=== PATIENT | male | born 1950 | race Caucasian/White ===

== ENCOUNTER → 2016-11-21 | Outpatient (CLI) | payer MEDICARE, OTHER ==
[~2016-11-21] MED LIST: ASPI-110 PO; CARV12.5 PO; CARV25TA PO; CEFT250T8 PO; CHOL50006 PO; CIAL5TAB PO; EVOL1.7I; FLUTI220I INH; HYDR-3516 PO; HYDR-3583 PO; MELA1TAB18 PO; MELAPOW2; OMEP20TA PO; OXYC-392 PO; OXYC1CAP PO; RAMI10CA PO; RAPA8CAP PO; TIZA2CAP3 PO; TRAZ50TA12 PO; ZETI10TA5 PO
[2016-11-21 09:12] LABS: AUTOMATED NEUTROPHIL # 3.9 TH/MM3 (1.8-7.7); BASOPHIL # 0.1 TH/MM3 (0-0.2); BASOPHIL % 1.6 % (0.0-2.0); EOSINOPHIL # 0.2 TH/MM3 (0-0.4); EOSINOPHIL % 2.6 % (0.0-4.0); HEMATOCRIT 46.4 % (39.0-51.0); HEMO FLAGS DIFF FINAL; LYMPH % 35.5 % (9.0-44.0); LYMPHOCYTE # 3.2 TH/MM3 (1.0-4.8); MEAN CELL VOLUME 90.6 FL (80.0-100.0); MEAN CORPUSCULAR HEMOGLOBIN 30.8 PG (27.0-34.0); MONO % 17.2 % (0.0-8.0); NEUT % 43.1 % (16.0-70.0); PLATELET COUNT 291 TH/MM3 (150-450); RED BLOOD COUNT 5.12 MIL/MM3 (4.50-5.90); RED CELL DISTRIBUTION WIDTH 14.7 % (11.6-17.2); WHITE BLOOD COUNT 9.1 TH/MM3 (4.0-11.0)
[2016-11-21 09:12] LABS: BLOOD, URINE NEG (NEG); GLUCOSE,URINE NEG (NEG); KETONE, URINE NEG (NEG); NITRITE,URINE NEG (NEG); PH, URINE 5.5 (5.0-8.5); URINE COLOR YELLOW (YELLW/STRAW)
[2016-11-21 09:16] LABS: COMMENT (UR) CULT NOT INDICATED; CULTURE IF INDICATED CULT NOT INDICATED
[2016-11-21 09:24] LABS: APTT (PATIENT) 28.2 SEC (24.3-30.1); INTERNATIONAL NORMALIZED RATIO 0.9 RATIO; PROTHROMBIN TIME - PATIENT 10.1 SEC (9.8-11.6)
[2016-11-21 09:37] LABS: ALKALINE PHOSPHATASE 77 U/L (45-117); ALT (GPT) 36 U/L (12-78); ANION GAP 6 MEQ/L (5-15); AST (GOT) 22 U/L (15-37); BICARBONATE 29.1 MEQ/L (21.0-32.0); BLOOD UREA NITROGEN 14 MG/DL (7-18); CHLORIDE 106 MEQ/L (98-107); GLOMERULAR FILTRATION RATE 65 ML/MIN (>89); GLUCOSE,FASTING 117 MG/DL (74-99); POTASSIUM 4.4 MEQ/L (3.5-5.1); SODIUM (NA) 141 MEQ/L (136-145); TOTAL BILIRUBIN ADULT 0.4 MG/DL (0.2-1.0)
--- NOTE | 2016-11-22 06:25 | EKG ---
Date Performed: 11/21/2016 Time Performed: 08:20:45 PTAGE: 66 years EKG: Sinus rhythm POSSIBLE RIGHT VENTRICULAR CONDUCTION DELAY NONSPECIFIC T-WAVE ABNORMALITY BORDERLINE ECG PREVIOUS TRACING : 04/13/2016 11.52 Compared to prior tracing no significant change DOCTOR: Marjorie Goncalves Interpretating Date/Time 11/22/2016 06:23:29
== END ==
LOC: CPRE 07:58
PROVIDERS: ATTEND Neurological Surgery
DX: Z01.812 Encounter for preprocedural laboratory examination (principal); Z01.810 Encounter for preprocedural cardiovascular examination; M51.26 Other intervertebral disc displacement, lumbar region; R94.31 Abnormal electrocardiogram [ECG] [EKG]
CPT/HCPCS: 36415; 80053; 81001; 85025; 85610; 85730; 93005

== ENCOUNTER 2016-11-29 09:11 | Observation (INO) | payer MEDICARE, OTHER ==
[~2016-11-29] VITALS: Ht 167.6 cm; Wt 117.4 kg
[~2016-11-29 09:11] MED LIST changes: +BUPIVACAINE/EPINEPHRINE 0.5% 50 ML VIAL ONE; -CARV12.5 PO; -CEFT250T8 PO; -CHOL50006 PO; -EVOL1.7I; -FLUTI220I INH; +GELFOAM SIZE 100 ONE; +GENTAMICIN SULFATE 80 MG/2 ML VIAL ONE; -HYDR-3516 PO; -HYDR-3583 PO; -MELAPOW2; +THROMBIN (TOPICAL) 5,000 UNIT VIAL ONE; -TIZA2CAP3 PO; +ceFAZolin 2 GM PREMIX 50 ML ONE; +methylPREDNISolone ACETATE 40 MG/ML VIAL ONE
[2016-11-29] MEDS ORDERED: POVIDONE IODINE 5% (ANTISEPSIS KIT) 4 APPLICATIONS EACH NARE PRN (09:45)
[2016-11-29] MEDS ORDERED: CHLORHEXIDINE GLUCONATE 2 % 1 PACK (2 CLOTHS) TOPICAL PRN (09:45)
[2016-11-29] MEDS ORDERED: INSULIN HUMAN REGULAR 1,000 UNITS/10 ML VIAL SQ PRN (09:45)
[2016-11-29] MEDS ORDERED: METOPROLOL TARTRATE 25 MG TAB PO PRN (09:45)
[2016-11-29] MEDS ORDERED: LACTATED RINGER'S 1000 ML IV PRN (09:45)
[2016-11-29] MEDS ORDERED: SODIUM CHLORID 0.9% 500 ML IV PRN (09:45)
[2016-11-29] MEDS ORDERED: VANCOMYCIN HCL 1000 MG ON-CALL/NS 250 ML IV SCH ×2 (10:00)
[2016-11-29] MEDS: SODIUM CHLOR 0.9% 1000 ML INJ 1,000 ML IV SCH (10:00)
[2016-11-29 10:07] VITALS: BP 160/87; PULSE 64; RESP 20; TEMP 99.4; O2SAT 95
[2016-11-29] MEDS ORDERED: LACTATED RINGER'S 1000 ML INJ 1,000 ML IV ONE (12:00)
[2016-11-29] MEDS ORDERED: PROPOFOL 200 MG/20 ML AMP IV ONE (12:00)
[2016-11-29] MEDS ORDERED: NEOSTIGMINE 3 MG/3 ML SYR IV ONE (12:00)
[2016-11-29] MEDS ORDERED: FAMOTIDINE 20 MG/2 ML VIAL ONE (12:57)
[2016-11-29] MEDS ORDERED: MIDAZOLAM HCL 2 MG/2 ML VIAL ONE ×2 (12:57→13:15)
[2016-11-29] MEDS ORDERED: DEXAMETHASONE SOD PHOS 4 MG/ML VIAL ONE (12:57)
[2016-11-29] MEDS ORDERED: fentaNYL CITRATE 250 MCG/5 ML AMP ONE (13:15)
[2016-11-29] MEDS ORDERED: ACETAMINOPHEN 1000 MG/100 ML VIAL IV ONE (13:15)
[2016-11-29] MEDS ORDERED: ARTIFICIAL TEARS OPTH OINT 3.5 APPLIC/3.5 GM TUBO ONE (13:15)
[2016-11-29] MEDS ORDERED: ACETAMINOPHEN 325 MG TAB PO PRN (16:00)
[2016-11-29] MEDS ORDERED: SODIUM CHLORIDE 0.9% FLUSH 5 ML FLUSH IVF PRN (16:00)
[2016-11-29] MEDS ORDERED: ACETAMINOPHEN/HYDROcodone 325 MG/10 MG TAB PO PRN (16:00)
[2016-11-29] MEDS ORDERED: MORPHINE SULFATE 4 MG/ML INJ IV PUSH PRN ×2 (16:00)
[2016-11-29] MEDS ORDERED: traZODone HCL 50 MG TAB PO PRN (16:00)
[2016-11-29] MEDS ORDERED: MELATONIN 20 MG PO PRN (16:00)
--- NOTE | 2016-11-29 16:06 | PD.OP ---
Operative Report Date of Surgery: November 29, 2016 Preoperative Diagnosis: Lumbar spinal stenosis Postoperative Diagnosis: Lumbar spinal stenosis Procedure: L4-5 and L5-S1 right decompressive laminectomy, mesial facetectomy, foraminotomy with microsurgical resection of the disc Surgeon: Tucker Hoover Floor Polisher(s): eKiko Fairchild Operation and Findings: INDICATIONS FOR THE SURGICAL PROCEDURE Mr Bravo is a 66 year-old male who presented with intractable mechanical back pain and clinical evidence of right L4 and L5 lower extremity radiculopathy. He was found to have significant lumbar spinal stenosis with significant mass effect on the neural structures which correlated with the clinical symptoms. The patient has failed maximum nonsurgical management including multiple modalities of conservative treatment as well as pain management interventions by an interventional pain specialist. A surgical decompression was indicated as a last resort. The [id number] details of the procedure, indications, alternatives, risks and potential complications were fully discussed with the patient. The patient fully understood. All the questions were answered. No guarantees were given. The patient voiced requesting the procedure and provided informed consents. The patient was offered the alternative of delaying the procedure and continuing with nonsurgical management. DETAILS OF THE SURGICAL PROCEDURE After the induction of general anesthesia, endotracheal intubation was performed. A Orozco catheter, bilateral BOBBY hose and sequential compression devices were placed and kept throughout the procedure. The patient was positioned prone on a Jerad table over a Jayce frame. All pressure points were carefully padded with eggcrate mattress. The eyes were tapped shut after ointment was applied by the anesthesiologist to prevent corneal abrasion. A Ras hugger was placed over the exposed lower body to maintain control of the core body temperature. The lower lumbar region was prepped and draped in the usual sterile fashion. A spinal needle was placed for localization and an x- ray performed with a C-arm. A skin incision was made in the midline over the spinous processes L4-5 and L5- S1 with a #10 blade. Small subcutaneous bleeders were controlled with a bipolar and the dissection was carried out through the lumbar fascia exposing the spinous processes. A subperiostial dissection was performed with a Pinedo elevator and a Bovie on the right side over the L4-5 and L5-S1 spinous process lamina and facets. A microdiscectomy self-retaining retractor was placed on the incision and an x-ray was obtained with an instrument placed underneath the lamina. At this point in the procedure the operating microscope was draped in the usual sterile fashion and brought to the field. The rest of the surgical procedure was performed using microsurgical dissection technique with exception of the closure. Once the level was confirmed, a right decompressive laminectomy was performed at initially at L4-5 and thereafter at L5-S1 using the TPS drill with an 4mm drill bit. A medial facetectomy was performed and the superior free border of the ligamentum flavum was dissected with a ligament dissector and removed with a thin footplate 2 mm Kerrison. The medial facetectomy was done and the L5 and S5malxv roots were identified and followed towards its exit in the foramen. Epidural veins located laterally to the dural sac were coagulated with a bipolar and incised with microscissors. Gentle medial retraction of the dural sac allowed inspection of the disc space. The patient had severe facet arthropathy with hypertrhopy of the joint facets and ligamentum flavum resulting in mass effect over the dural sac and nerve roots. In addition, there was a broad-based disc protusion, contributing to the stenosis. The annulus fibrosus of the disc was coagulated with the bipolar and incised with an 11 blade. The disc protusion was carefully dissected from the surrounding tissue and removed with pituitary forceps. Then, a microdiscectomy was carried out in the standard fashion using straight and up-biting pituitary forceps. A good decompression of the dural sac and nerve root was achieved. The exit of the nerve root L5 and S1 was inspected for residual disc fragments and hemostasis was secured with the bipolar. The incision was irrigated with a large amount of saline solution. A Valsalva maneuver failed to show any cerebrospinal fluid leak or bleeding. The decompression was assessed again and found to be satisfactory. The incision was then closed in layers. The fascia was closed with 0 Vicryl sutures in an interrupted fashion. The superficial fascia was closed with 0 Vicryl sutures. The fascia was infiltrated with 0.5% Marcaine with epinephrine 1:100,000 dilution. The subcutaneous tissue was irrigated then closed with 0 Vicryl and 3 -0 Vicryl. The skin was closed with 4-0 running subcuticular Vicryl. A sterile dressing was applied. At the end of the procedure, the sponge, needle and instrument counts were all correct. Estimated blood loss was less than 50 cc. No blood transfusion was given. No intraoperative complications occurred. The patient received prophylactic antibiotics. The patient was then extubated and transferred to the recovery room in stable condition. Tucker Hoover MD November 29, 2016 16:05
[2016-11-29] MEDS ORDERED: HYDR-3583 PO (16:14)
--- NOTE | 2016-11-29 16:16 | RADRPT ---
EXAM DATE/TIME: 11/29/2016 13:56 [facility] COMPARISON: No previous studies available for comparison. INDICATIONS : Level localization for lumbar laminectomy. MEDICAL HISTORY : Cardiovascular disease. Hypertension. Lymphoma.Barretts Esophagus. SURGICAL HISTORY : Fusion, cervical. ENCOUNTER: Initial ACUITY: 1 day PAIN SCORE: Non-responsive. LOCATION: Lumbar. FINDINGS: Intraoperative localization points towards L5. CONCLUSION: Intraoperative localization. Jorge Davis MD on November 29, 2016 at 16:13 Board Certified Radiologist. This report was verified electronically.
[2016-11-29] MEDS: NS + KCL 20 MEQ INJ 1,000 ML IV SCH ×2 (17:32→20:19)
[2016-11-29 18:30] VITALS: BP 156/96; PULSE 60; RESP 17; TEMP 96.2; O2SAT 95
[2016-11-29 20:00] VITALS: BP 156/89; PULSE 55; RESP 17; TEMP 97.2; O2SAT 97
[2016-11-29] MEDS: ceFAZolin 2 GM PREMIX 50 ML IV SCH (20:19)
[2016-11-29] MEDS: DOCUSATE SODIUM 100 MG CAP PO SCH (20:19)
[2016-11-29] MEDS: SODIUM CHLORIDE 0.9% FLUSH 5 ML FLUSH IVF SCH (20:20)
[2016-11-29] MEDS ORDERED: CARVEDILOL 12.5 MG TAB PO SCH (21:00)
[2016-11-29] MEDS: ACETAMINOPHEN/HYDROcodone 325 MG/10 MG TAB PO PRN (22:05)
[2016-11-30] VITALS: BP 162/90; PULSE 69; RESP 17; TEMP 96.9; O2SAT 97
[2016-11-30 04:00] VITALS: BP 153/83; PULSE 58; RESP 17; TEMP 97.7; O2SAT 97
[2016-11-30] MEDS: ACETAMINOPHEN/HYDROcodone 325 MG/10 MG TAB PO PRN ×2 (04:09→10:10)
[2016-11-30] MEDS: ceFAZolin 2 GM PREMIX 50 ML IV SCH (04:10)
[2016-11-30 07:06] VITALS: BP 113/69; PULSE 69; RESP 18; TEMP 97.6; O2SAT 96
[2016-11-30] MEDS ORDERED: PANTOPRAZOLE SOD 20 MG DELAYED RELEASE TAB PO SCH (09:00)
[2016-11-30] MEDS ORDERED: RAMIPRIL 5 MG CAP PO SCH (09:00)
[2016-11-30] MEDS: SODIUM CHLORIDE 0.9% FLUSH 5 ML FLUSH IVF SCH (09:00)
[2016-11-30] MEDS ORDERED: PANTOPRAZOLE SOD 40 MG DELAYED RELEASE TAB PO SCH (09:00)
[2016-11-30] MEDS ORDERED: SILODOSIN 8 MG PO SCH (09:00)
[2016-11-30] MEDS ORDERED: EZETIMIBE 10 MG TAB PO SCH (09:00)
[2016-11-30] MEDS ORDERED: TADALAFIL 5 MG PO SCH (09:00)
--- NOTE | 2016-11-30 09:39 | HHI.DCPOC ---
Discharge Care Plan Diagnosis: (1) S/P lumbar laminectomy Goals to Promote Your Health * To prevent worsening of your condition and complications * To maintain your health at the optimal level Directions to Meet Your Goals Take your medications as prescribed Follow your dietary instruction Follow activity as directed Keep your appointments as scheduled Take your immunizations and boosters as scheduled If your symptoms worsen call your PCP, if no PCP go to Urgent Care Center or Emergency Room Smoking is Dangerous to Your Health. Avoid second hand smoke Call the 24-hour hour crisis hotline for domestic abuse at Chayo Luis November 30, 2016 09:39
--- NOTE | 2016-11-30 09:41 | HHI.DS ---
Discharge Summary Admission Date November 29, 2016 at 18:15 Discharge Date: November 30, 2016 Admitting Diagnosis s/p lumbar laminectomy (1) S/P lumbar laminectomy ICD Code: Z98.890 Brief History Mr Bravo is a 66 year-old male who presented with intractable mechanical back pain and clinical evidence of right L4 and L5 lower extremity radiculopathy. He was found to have significant lumbar spinal stenosis with significant mass effect on the neural structures which correlated with the clinical symptoms. The patient has failed maximum nonsurgical management including multiple modalities of conservative treatment as well as pain management interventions by an interventional pain specialist. A surgical decompression was indicated as a last resort. Imaging Last Impressions Lumbar Spine X-Ray 11/29/16 0000 Signed Impressions: Service Date/Time: Tuesday, November 29, 2016 13:56 - CONCLUSION: Intraoperative localization. Jorge Davis MD PE at Discharge Alert, conversing well. Moves all four extremities well. Respiratory: nonlabored CN: pupils equal, facial motor symmetric. Hospital Course Mr. Bravo underwent a L4-5 and L5-S1 right decompressive laminectomy, mesial facetectomy, foraminotomy with microsurgical resection of the disc on November 29, 2016. His surgery went well without complications. He was discharged home in stable conditions. Wound care and activity restrictions were discussed. Pt Condition on Discharge: Stable Discharge Disposition: Discharge Home Discharge Instructions DIET: Follow Instructions for: Heart Healthy Diet ACTIVITIES You can perform: Weight Bearing As Josie ADDITIONAL Activity Instructio: Avoid strenuous activities, heavy lifting, overhead activities, repetitive bending, twisting, pushing, pulling or any activities which might result in stress over the spine. Avoid situtation that will put at risk for falls. Use assistive device as needed for walking. Wear cervical collar at all times, may remove only with meals. New Medications: Hydrocodone-Acetaminophen (Hydrocodone-Acetaminophen) 10-325 mg Tab 1 TAB PO Q8HR PRN PAIN SCALE 1 TO 5 #90 Ref 0 TAB Continued Medications: Aspirin DR (Aspirin 81) 81 Mg Tabdr 81 MG PO DAILY Ref 0 TAB Carvedilol (Carvedilol) 25 Mg Tab 25 MG PO BID #60 Ref 0 TAB Ezetimibe (Zetia) 10 Mg Tab 10 MG PO DAILY #30 Ref 0 TAB Melatonin (Melatonin) 10 Mg Tab 20 MG PO HS PRN SLEEP Ref 0 TAB Omeprazole (Omeprazole) 20 Mg Tab 20 MG PO DAILY #30 Ref 0 TAB Oxycodone (Oxycodone) 5 Mg Cap 5 MG PO Q4H PRN PAIN Ref 0 CAP Ramipril (Ramipril) 10 Mg Cap 10 MG PO DAILY #30 Ref 0 CAP Silodosin (Rapaflo) 8 Mg Cap 8 MG PO DAILY Manage Prostate Problems #30 Ref 0 CAP Tadalafil (Cialis) 5 Mg Tab 5 MG PO DAILY Do not exceed 1 dose/day. Ref 0 TAB Trazodone (Trazodone) 50 Mg Tab 50 MG PO HS PRN INSOMNIA #30 Ref 0 TAB Chayo Luis November 30, 2016 09:41
[2016-11-30] MEDS: SODIUM CHLOR 0.9% 1000 ML INJ 1,000 ML IV SCH (10:00)
[2016-11-30] MEDS: DOCUSATE SODIUM 100 MG CAP PO SCH (10:09)
[2016-11-30] MEDS: NS + KCL 20 MEQ INJ 1,000 ML IV SCH (11:55)
[2016-11-30 12:00] VITALS: BP 145/76; PULSE 71; RESP 18; TEMP 96; O2SAT 95
== END 2016-11-30 13:30 | disposition home or self-care (01) ==
LOC: HSDC 09:11 → N06B 18:15
PROVIDERS: ADMIT Neurological Surgery; ATTEND Neurological Surgery
DX: M51.16 Intervertebral disc disorders with radiculopathy, lumbar region (principal); M48.06 Spinal stenosis, lumbar region; I10 Essential (primary) hypertension; Z85.72 Personal history of non-Hodgkin lymphomas; I25.10 Atherosclerotic heart disease of native coronary artery without angina pectoris; I25.2 Old myocardial infarction; E78.5 Hyperlipidemia, unspecified; G62.9 Polyneuropathy, unspecified; Z87.891 Personal history of nicotine dependence; K21.9 Gastro-esophageal reflux disease without esophagitis; Z85.46 Personal history of malignant neoplasm of prostate; Z98.1 Arthrodesis status; Z88.8 Allergy status to other drugs, medicaments and biological substances; Z88.5 Allergy status to narcotic agent
CPT/HCPCS: 63030; 63035; 72020; 76000; 94150; G0378; J0131; J0690; J1030; J1100; J1580; J2250; J2270; J2710; J3010; J3370; J3480; J7050; J7120; L0627

== ENCOUNTER 2016-12-02 06:20 | Emergency (ER) | payer MEDICARE, OTHER ==
[~2016-12-02 06:20] MED LIST changes: -BUPIVACAINE/EPINEPHRINE 0.5% 50 ML VIAL ONE; -GELFOAM SIZE 100 ONE; -GENTAMICIN SULFATE 80 MG/2 ML VIAL ONE; +HYDR-3583 PO; -OXYC-392 PO; -THROMBIN (TOPICAL) 5,000 UNIT VIAL ONE; -ceFAZolin 2 GM PREMIX 50 ML ONE; -methylPREDNISolone ACETATE 40 MG/ML VIAL ONE
[2016-12-02 06:24] VITALS: BP 126/70; PULSE 72; RESP 16; TEMP 99.3; O2SAT 99
== END 2016-12-02 06:32 | disposition left against medical advice (07) ==
LOC: NED 06:20
DX: R50.9 Fever, unspecified (principal)
CPT/HCPCS: 99281

== ENCOUNTER 2016-12-03 10:34 | Inpatient (IN) | payer MEDICARE, OTHER ==
[~2016-12-03] VITALS: Ht 167.6 cm; Wt 81.0 kg
[2016-12-03 10:36] VITALS: BP 153/95; PULSE 82; RESP 20; TEMP 101.4; O2SAT 97
[2016-12-03 11:06] VITALS: BP 178/93; PULSE 84; RESP 18; TEMP 102.4; O2SAT 99
--- NOTE | 2016-12-03 11:12 | PD ---
HPI Chief Complaint: Fever Time Seen by Provider: 10:56 Travel History International Travel<30 days: No Contact w/Intl Traveler<30days: No Traveled to known affect area: No History of Present Illness HPI 66yo M with PMH of pheochromocytoma, adrenal gland CA s/p left nephrectomy and splenectomy, prostate CA currently being monitored, BPH presents to the ED with c/o fever and urinary retention. Pt had L5-S1 right decompressive laminectomy, medial facetectomy, foraminotomy with micro surgical resection of disc by Dr. Hoover on 11/29/16 and has been having intermittent fever and difficulty urinating. States that he feels fullness in his bladder and tries to push out the urine and usually gets a little dribble. Denies any trauma, chest pain, sob , n/v, focal weakness or numbness. PFSH Past Medical History Cancer: Yes (prostate ) Cardiovascular Problems: Yes (HTN) Diabetes: No Endocrine: No Gastrointestinal Disorders: Yes (gerd, toth's esophagus) Genitourinary: Yes (one kidney) Hepatitis: No Hiatal Hernia: No Hypertension: Yes Immune Disorder: No Musculoskeletal: Yes (back pain) Neurologic: Yes (pain shoulders with numbness both arms, tingling r leg ) Psychiatric: Yes (DEPRESSION) Reproductive: No Respiratory: Yes (SLEEP APNEA) Thyroid Disease: No Tetanus Vaccination: < 5 Years Influenza Vaccination: Yes Past Surgical History Abdominal Surgery: Yes (hernia repair, gallbladder, spleen removal,16 lymph node removed) AICD: No Body Medical Devices: KRISTEN IN DIAPHRAM, PLATES AND SCREWS IN NECK Ear Surgery: No Endocrine Surgery: Yes (REMOVAL OF L ADRENAL GLAND, SPLEEN,LYMPH NODES ) Eye Surgery: No Genitourinary Surgery: Yes (LEFT NEPHRECTOMY) Joint Replacement: No Neurologic Surgery: Yes (R WRIST CARPAL TUNNEL 2009, CERVICAL FUSION ) Oral Surgery: No Pacemaker: No Other Surgery: Yes Social History Alcohol Use: No Tobacco Use: No Substance Use: No Allergies-Medications (Allergen,Severity, Reaction): Coded Allergies: Zocor (Verified Allergy, Severe, 12/03/16) HMG-CoA Reductase Inhibitors (Verified Adverse Reaction, Severe, RABDOMYOLYSIS, RENAL FAILURE, 12/03/16) Levaquin (Verified Adverse Reaction, Intermediate, NAUSEA/VOMITING, ) Vicodin (Verified Adverse Reaction, Intermediate, ITCHING, 12/03/16) Reported Meds & Prescriptions Reported Meds & Active Scripts Active Reported Carvedilol 25 Mg Tab 25 Mg PO BID Ramipril 10 Mg Cap 10 Mg PO DAILY Aspirin 81 (Aspirin) 81 Mg Tabdr 81 Mg PO DAILY Cialis (Tadalafil) 5 Mg Tab 5 Mg PO DAILY Do not exceed 1 dose/day. Omeprazole 20 Mg Tab 20 Mg PO DAILY Rapaflo (Silodosin) 8 Mg Cap 8 Mg PO DAILY Trazodone (Trazodone HCl) 50 Mg Tab 50 Mg PO HS PRN Zetia (Ezetimibe) 10 Mg Tab 10 Mg PO DAILY Review of Systems Except as stated in HPI: all other systems reviewed are Neg Physical Exam Narrative GENERAL: 66yo M not in distress. SKIN: Focused skin assessment warm/dry. HEAD: Atraumatic. Normocephalic. CARDIOVASCULAR: Regular rate and rhythm. No murmur appreciated. RESPIRATORY: No accessory muscle use. Clear to auscultation. Breath sounds equal bilaterally. GASTROINTESTINAL: Abdomen soft, non-tender, nondistended. No rebound tenderness or guarding. BACK: +Scar L5-S1. No edema, erythema, or hematoma. No discharge or signs of infection. MUSCULOSKELETAL: No obvious deformities. No clubbing. No cyanosis. No edema. NEUROLOGICAL: Awake and alert. No obvious cranial nerve deficits. Motor grossly within normal limits. Normal speech. Sensation intact bilateral lower ext. PSYCHIATRIC: Appropriate mood and affect; insight and judgment normal. Data Data Last Documented VS Vital Signs Date Time Temp Pulse Resp B/P Pulse Ox O2 Delivery O2 Flow Rate FiO2 12/03/16 11:06 102.4 84 18 178/93 99 Room Air Orders Blood Culture (12/03/16 11:06) Complete Blood Count With Diff (12/03/16 11:06) Basic Metabolic Panel (Bmp) (12/03/16 11:06) Lactic Acid Sepsis Protocol (12/03/16 11:06) Prothrombin Time / Inr (Pt) (12/03/16 11:06) Act Partial Throm Time (Ptt) (12/03/16 11:06) Urinalysis - C+S If Indicated (12/03/16 11:06) Urinary Catheter Insert/Apply (12/03/16 11:06) Acetaminophen (Tylenol) (12/03/16 11:30) Sodium Chlor 0.9% 1000 Ml Inj (Ns 1000 M (12/03/16 11:45) Ceftriaxone Inj (Rocephin Inj) (12/03/16 11:45) Urine Culture (12/03/16 10:58) Diet Heart Healthy (12/03/16 Lunch) Vital Signs (Adult) DARYL.Q4H (12/03/16 12:31) Ondansetron Inj (Zofran Inj) (12/03/16 13:00) Acetaminophen (Tylenol) (12/03/16 13:00) Complete Blood Count With Diff (12/04/16 06:00) Admit Order (Ed Use Only) (12/03/16 12:35) Labs Laboratory Tests Test 12/03/16 12/03/16 12/03/16 10:58 11:10 11:15 Urine Color YELLOW Urine Turbidity HAZY Urine pH 6.0 Urine Specific [place] 1.020 Urine Protein 30 mg/dL Urine Glucose (UA) NEG mg/dL Urine Ketones 10 mg/dL Urine Occult Blood SMALL Urine Nitrite POS Urine Bilirubin NEG Urine Urobilinogen LESS THAN 2.0 MG/DL Urine Leukocyte Esterase LARGE Urine RBC 47 /hpf Urine WBC /hpf Urine Amorphous Sediment OCC Urine Bacteria MANY /hpf Urine Mucus FEW /lpf Microscopic Urinalysis Comment CULTURE INDICATED White Blood Count 13.6 TH/MM3 Red Blood Count 5.17 MIL/MM3 Hemoglobin 15.4 GM/DL Hematocrit 47.0 % Mean Corpuscular Volume 90.9 FL Mean Corpuscular Hemoglobin 29.9 PG Mean Corpuscular Hemoglobin 32.9 % Concent Red Cell Distribution Width 14.6 % Platelet Count 213 TH/MM3 Mean Platelet Volume 10.0 FL Neutrophils (%) (Auto) 80.6 % Lymphocytes (%) (Auto) 6.1 % Monocytes (%) (Auto) 12.7 % Eosinophils (%) (Auto) 0.1 % Basophils (%) (Auto) 0.5 % Neutrophils # (Auto) 11.0 TH/MM3 Lymphocytes # (Auto) 0.8 TH/MM3 Monocytes # (Auto) 1.7 TH/MM3 Eosinophils # (Auto) 0.0 TH/MM3 Basophils # (Auto) 0.1 TH/MM3 CBC Comment DIFF FINAL Differential Comment Prothrombin Time 11.4 SEC Prothromb Time International 1.0 RATIO Ratio Activated Partial 28.8 SEC Thromboplast Time Sodium Level 137 MEQ/L Potassium Level 4.3 MEQ/L Chloride Level 102 MEQ/L Carbon Dioxide Level 26.2 MEQ/L Anion Gap 9 MEQ/L Blood Urea Nitrogen 20 MG/DL Creatinine 1.18 MG/DL Estimat Glomerular Filtration 62 ML/MIN Rate Random Glucose 100 MG/DL Calcium Level 9.4 MG/DL Lactic Acid Level 1.2 mmol/L MDM Medical Decision Making Medical Screen Exam Complete: Yes Emergency Medical Condition: Yes Differential Diagnosis UTI vs. urinary retention vs. acute kidney injury vs. epidural abscess vs. epidural hematoma Narrative Course 66yo M with recent laminectomy here with c/o fever and urinary retention since the surgery 11/29/16. Orozco catheter placed and 600cc of cloudy urine came out immediately. Labs reviewed, leukocytosis at 13.6. BUN mildly elevated. Creatinine normal at 1.18. Lactic acid 1.2. UA showed positive nitrite and leukocyte. Pt given ceftriaxone 1gm IV and leukocyte. Pt febrile here so give acetaminophen since last time he took it was 8 hours ago. I discussed case with Dr. Saldana and he thinks fever and urinary retention is likely from UTI. Thinks that if we obtain MRI, will likely show inflammation and small epidural hematoma which is expected. Recommend to treat UTI and if symptoms dont improve in 24-48 hours, then can consider MRI. I agree with plan since clinically pt has no signs of infection in his lower back and back pain has improved. Pt has no weakness or numbness in his lower extremities. Discussed with Dr. Carlisle and accepted to his service for sepsis secondary to UTI. Critical Care Narrative Aggregate critical care time was 40 minutes. Time to perform other separately billable procedures was not included in the critical care time. My time did not include minutes spent treating any other patients simultaneously or on activities that did not directly contribute to the patient's treatment. The services I provided to this patient were to treat and/or prevent clinically significant deterioration that could result in: cardiovascular collapse or . I provided critical care services requiring my management, as noted below: Chart data review, documentation time, medication orders and management, vital sign assessments/reviewing monitor data, ordering and reviewing lab tests, ordering and interpreting/reviewing x-rays and diagnostic studies, care of the patient and discussion of the patient with the admitting physicians. Sepsis Criteria SIRS Criteria (2 or more): Temp > 100.9 or < 96.8, WBC > 52755, < 4000 or > 10 % bands Sepsis Criteria (SIRS+source): Infect source susp/known Diagnosis Primary Impression: Sepsis Qualified Code: A41.9 - Sepsis, due to unspecified organism Admitting Information Admitting Physician Requests: Yaritza Jacobson DO December 03, 2016 11:12
[2016-12-03] MEDS ORDERED: ACETAMINOPHEN 325 MG TAB PO ONE (11:30)
[2016-12-03 11:35] LABS: BASOPHIL # 0.1 TH/MM3 (0-0.2); BASOPHIL % 0.5 % (0.0-2.0); EOSINOPHIL % 0.1 % (0.0-4.0); HEMO FLAGS DIFF FINAL; LYMPH % 6.1 % (9.0-44.0); LYMPHOCYTE # 0.8 TH/MM3 (1.0-4.8); MEAN CELL VOLUME 90.9 FL (80.0-100.0); MEAN CORPUSCULAR HEMOGLOBIN 29.9 PG (27.0-34.0); MEAN CORPUSCULAR HGB CONC 32.9 % (32.0-36.0); MONO % 12.7 % (0.0-8.0); NEUT % 80.6 % (16.0-70.0); PLATELET COUNT 213 TH/MM3 (150-450); RED BLOOD COUNT 5.17 MIL/MM3 (4.50-5.90); RED CELL DISTRIBUTION WIDTH 14.6 % (11.6-17.2); WHITE BLOOD COUNT 13.6 TH/MM3 (4.0-11.0)
[2016-12-03 11:44] LABS: BICARBONATE 26.2 MEQ/L (21.0-32.0); POTASSIUM 4.3 MEQ/L (3.5-5.1)
[2016-12-03 11:45] LABS: APTT (PATIENT) 28.8 SEC (24.3-30.1); PROTHROMBIN TIME - PATIENT 11.4 SEC (9.8-11.6)
[2016-12-03] MEDS ORDERED: cefTRIAXone INJ 1,000 MG in SODIUM CHLORIDE 0.9% INJ 100 ML IV ONE (11:45)
[2016-12-03] MEDS ORDERED: SODIUM CHLOR 0.9% 1000 ML INJ 1,000 ML IV ONE ×2 (11:45→13:00)
[2016-12-03 11:46] LABS: BACTERIA, URINE MANY /hpf; BLOOD, URINE SMALL (NEG); GLUCOSE,URINE NEG (NEG); KETONE, URINE 10 mg/dL (NEG); MUCUS URINE FEW /lpf (OCC); URINE COLOR YELLOW (YELLW/STRAW)
[2016-12-03 11:47] LABS: COMMENT (UR) CULTURE INDICATED; CULTURE IF INDICATED CULTURE INDICATED; NITRITE,URINE POS (NEG)
[2016-12-03] MEDS ORDERED: ONDANSETRON HCL 4 MG/2 ML VIAL IV PUSH PRN (13:00)
--- NOTE | 2016-12-03 13:07 | HHI.HP ---
[facility] Primary Care Physician Non-Staff Admission Diagnosis Urosepsis Diagnoses: (1) Sepsis Diagnosis: Principal (2) UTI (urinary tract infection) Diagnosis: Principal (3) Urinary retention Diagnosis: Principal Chief Complaint: urinary retention Travel History International Travel<30 Days: No Contact w/Intl Traveler <30 Da: No Traveled to Known Affected Are: No Sepsis Criteria SIRS Criteria (2 or more): Temp > 100.9 or < 96.8, WBC > 95631, < 4000 or > 10 % bands Sepsis Criteria (SIRS+source): Infect source susp/known Criteria Outcome: Meets sepsis criteria History of Present Illness patient is a 66 y/o male with history of lumbar spine stenosis- s/p L4-L5/ L5- S1 laminectomy four days ago presented to ER with urinary retention and fever. he says that ' everything went well after the surgery' . he had a garcia cath at the time which was removed before he was discharged home. he says that he could void before discharge. but when he went home he started to have urinary retention along with high fever. he says that he had urinary retention after the surgery in the past but not ' that bad'. he says that he took some tylenol which initially ' took care of the fever ' but again since two days ago he's had on and off fever. he says that he had some pressure over his bladder along with some dribbling. he denies any lower extremity weakness, numbness or stool incontinence. a garcia cath was inserted in ER after which he felt much better. Review of Systems Constitutional: COMPLAINS OF: Fever, DENIES: Weight loss, Chills, Night Sweats Eyes: DENIES: Blurred vision, Diplopia, Vision loss, Double Vision Ears, nose, mouth, throat: DENIES: Tinnitus, Vertigo, Throat pain, Epistaxis Respiratory: DENIES: Apneas, Cough, Snoring, Wheezing, Hemoptysis, Sputum production, Shortness of breath Cardiovascular: DENIES: Chest pain, Palpitations, Syncope, Dyspnea on Exertion , PND, Lower Extremity Edema, Orthopnea, Claudication Gastrointestinal: DENIES: Abdominal pain, Black stools, Bloody stools, Constipation, Diarrhea, Nausea, Vomiting, Difficulty Swallowing, Anorexia Genitourinary: DENIES: Urinary frequency, Urgency, Hematuria, Dysuria Musculoskeletal: DENIES: Joint pain, Muscle aches, Stiffness, Joint Swelling Integumentary: DENIES: Rash Neurologic: DENIES: Abnormal gait, Headache, Localized weakness, Paresthesias, Seizures, Speech Problems, Tremor, Poor Balance Psychiatric: DENIES: Anxiety, Confusion, Mood changes, Depression, Hallucinations, Agitation, Suicidal Ideation, Homicidal Ideation, Delusions urinary retention. Past Family Social History Past Medical History CAD prostate cancer pheochromocytoma Past Surgical History recent laminectomy adrenalectomy nephrectomy splenectomy Reported Medications Carvedilol 25 Mg Tab 25 Mg PO BID Ramipril 10 Mg Cap 10 Mg PO DAILY Aspirin 81 (Aspirin) 81 Mg Tabdr 81 Mg PO DAILY Cialis (Tadalafil) 5 Mg Tab 5 Mg PO DAILY Do not exceed 1 dose/day. Omeprazole 20 Mg Tab 20 Mg PO DAILY Rapaflo (Silodosin) 8 Mg Cap 8 Mg PO DAILY Trazodone (Trazodone HCl) 50 Mg Tab 50 Mg PO HS PRN Zetia (Ezetimibe) 10 Mg Tab 10 Mg PO DAILY Allergies: Coded Allergies: Zocor (Verified Allergy, Severe, 12/03/16) HMG-CoA Reductase Inhibitors (Verified Adverse Reaction, Severe, RABDOMYOLYSIS, RENAL FAILURE, 12/03/16) Levaquin (Verified Adverse Reaction, Intermediate, NAUSEA/VOMITING, ) Vicodin (Verified Adverse Reaction, Intermediate, ITCHING, 12/03/16) Active Ordered Medications Current Medications Acetaminophen 650 mg 650 mg ONCE ONCE PO Last administered on 12/03/16 11:41 ; Start 12/03/16 at 11:30; Stop 12/03/16 at 11:31; Status DC Sodium Chloride 1,000 ml @ 999 mls/hr BOLUS ONCE IV Last administered on 12/03 11:56; Start 12/03/16 at 11:45; Stop 12/03/16 at 12:45; Status DC Ceftriaxone Sodium/Sodium Chloride (Rocephin Inj/NS Inj) 100 ml @ 200 mls/hr ONCE ONCE IV Last administered on 12/03/16 11:56; Start 12/03/16 at 11:45; Stop 12/03/16 at 12:14; Status DC Ondansetron HCl (Zofran Inj) 4 mg Q8HR PRN IV PUSH NAUSEA; Start 12/03/16 at 13 :00 Acetaminophen (Tylenol) 650 mg Q4H PRN PO FEVER/PAIN; Start 12/03/16 at 13:00 Family History cancer in father. Social History ex-smoker- drinks occasionally. Physical Exam Vital Signs Vital Signs Date Time Temp Pulse Resp B/P Pulse Ox O2 Delivery O2 Flow Rate FiO2 12/03/16 11:06 102.4 84 18 178/93 99 Room Air 12/03/16 10:58 86 20 98 Room Air 12/03/16 10:36 101.4 82 20 153/95 97 Room Air Physical Exam GENERAL: This is a well-nourished, well-developed patient, in no apparent distress. SKIN: No rashes, ecchymoses or lesions. Cool and dry. HEAD: Atraumatic. Normocephalic. No temporal or scalp tenderness. EYES: Pupils equal round and reactive. Extraocular motions intact. No scleral icterus. No injection or drainage. ENT: Nose without bleeding, purulent drainage or septal hematoma. Throat without erythema, tonsillar hypertrophy or exudate. Uvula midline. Airway patent. NECK: Trachea midline. No JVD or lymphadenopathy. Supple, nontender, no meningeal signs. CARDIOVASCULAR: Regular rate and rhythm without murmurs, gallops, or rubs. RESPIRATORY: Clear to auscultation. Breath sounds equal bilaterally. No wheezes , rales, or rhonchi. GASTROINTESTINAL: Abdomen soft, non-tender, nondistended. No hepato-splenomegaly , or palpable masses. No guarding. MUSCULOSKELETAL: Extremities without clubbing, cyanosis, or edema. No joint tenderness, effusion, or edema noted. No calf tenderness. Negative Homans sign bilaterally. NEUROLOGICAL: Awake and alert. Cranial nerves II through XII intact. Motor and sensory grossly within normal limits. Five out of 5 muscle strength in all muscle groups. Normal speech. Laboratory Laboratory Tests Test 12/03/16 12/03/16 12/03/16 10:58 11:10 11:15 Urine Color YELLOW Urine Turbidity HAZY Urine pH 6.0 Urine Specific [place] 1.020 Urine Protein 30 Urine Glucose (UA) NEG Urine Ketones 10 Urine Occult Blood SMALL Urine Nitrite POS Urine Bilirubin NEG Urine Urobilinogen LESS THAN 2.0 Urine Leukocyte Esterase LARGE Urine RBC 47 Urine WBC Urine Amorphous Sediment OCC Urine Bacteria MANY Urine Mucus FEW Microscopic Urinalysis Comment CULTURE INDICATED White Blood Count 13.6 Red Blood Count 5.17 Hemoglobin 15.4 Hematocrit 47.0 Mean Corpuscular Volume 90.9 Mean Corpuscular Hemoglobin 29.9 Mean Corpuscular Hemoglobin 32.9 Concent Red Cell Distribution Width 14.6 Platelet Count 213 Mean Platelet Volume 10.0 Neutrophils (%) (Auto) 80.6 Lymphocytes (%) (Auto) 6.1 Monocytes (%) (Auto) 12.7 Eosinophils (%) (Auto) 0.1 Basophils (%) (Auto) 0.5 Neutrophils # (Auto) 11.0 Lymphocytes # (Auto) 0.8 Monocytes # (Auto) 1.7 Eosinophils # (Auto) 0.0 Basophils # (Auto) 0.1 CBC Comment DIFF FINAL Differential Comment Prothrombin Time 11.4 Prothromb Time International 1.0 Ratio Activated Partial 28.8 Thromboplast Time Sodium Level 137 Potassium Level 4.3 Chloride Level 102 Carbon Dioxide Level 26.2 Anion Gap 9 Blood Urea Nitrogen 20 Creatinine 1.18 Estimat Glomerular Filtration 62 Rate Random Glucose 100 Calcium Level 9.4 Lactic Acid Level 1.2 Date/Time Procedure Status Source Growth 12/03/16 11:15 Aerobic Blood Culture Received Blood Peripheral Pending 12/03/16 11:15 Anaerobic Blood Culture Received Blood Peripheral Pending 12/03/16 10:58 Urine Culture Received Urine Clean Catch Pending Result Diagram: 12/03/16 1110 12/03/16 1110 Assessment and Plan Assessment and Plan A/P - sepsis due to UTI along with urinary retention- s/p recent laminectomy garcia has been placed in ER- continue with IV antibiotic- antipyretics as needed- will follow the cultures. - s/p recent laminectomy- case has been d/w neurosurgery [employer] consultant who recommended that UTI to be treated for now- will consider neurosurgery consult ( ) if no improvement within the next one-two days per the above-noted discussion with on-call neurosurgery. -CAD; resume home meds. -DVT prophylaxis with SCD's. Discussed Condition With ER physician and the patient. Physician Certification 2 Midnight Certification Type: Admission for Inpatient Services Order for Inpatient Services The services are ordered in accordance with Medicare regulations or non- Medicare payer requirements, as applicable. In the case of services not specified as inpatient-only, they are appropriately provided as inpatient services in accordance with the 2-midnight benchmark. Estimated LOS (days): 2 days is the estimated time the patient will need to remain in the hospital, assuming treatment plan goals are met and no additional complications. Post-Hospital Plan: Home Problem Qualifiers (1) Sepsis: Qualified Code: A41.9 - Sepsis, due to unspecified organism (2) UTI (urinary tract infection): Manjit De Jesus MD December 03, 2016 13:06
[2016-12-03] MEDS ORDERED: ENALAPRILAT 1.25 MG/ML VIAL IV PUSH PRN (13:15)
[2016-12-03 13:29] VITALS: BP 143/77; PULSE 77; RESP 18; TEMP 99.8; O2SAT 96
[2016-12-03 14:50] VITALS: BP 146/77; PULSE 70; RESP 16; TEMP 99.5; O2SAT 94
[2016-12-03 16:00] VITALS: BP 154/82; PULSE 71; RESP 17; TEMP 100.1; O2SAT 94
[2016-12-03] MEDS: ACETAMINOPHEN 325 MG TAB PO PRN ×2 (17:14→21:34)
[2016-12-03] MEDS ORDERED: IBUPROFEN 200 MG TAB PO PRN (18:45)
[2016-12-03 20:00] VITALS: BP 160/84; PULSE 85; RESP 20; TEMP 101.7; O2SAT 94
[2016-12-03] MEDS: CARVEDILOL 12.5 MG TAB PO SCH (20:04)
[2016-12-04] VITALS: BP 123/74; PULSE 64; RESP 18; TEMP 98.7; O2SAT 94
[2016-12-04] MEDS: traZODone HCL 50 MG TAB PO PRN ×2 (01:06→22:12)
[2016-12-04 05:59] LABS: AUTOMATED NEUTROPHIL # 6.1 TH/MM3 (1.8-7.7); BASOPHIL # 0.1 TH/MM3 (0-0.2); BASOPHIL % 0.6 % (0.0-2.0); EOSINOPHIL # 0.1 TH/MM3 (0-0.4); EOSINOPHIL % 0.6 % (0.0-4.0); HEMO FLAGS DIFF FINAL; LYMPH % 19.2 % (9.0-44.0); LYMPHOCYTE # 1.9 TH/MM3 (1.0-4.8); MEAN CELL VOLUME 90.8 FL (80.0-100.0); MEAN CORPUSCULAR HEMOGLOBIN 30.6 PG (27.0-34.0); MEAN CORPUSCULAR HGB CONC 33.7 % (32.0-36.0); MONO % 18.5 % (0.0-8.0); NEUT % 61.1 % (16.0-70.0); PLATELET COUNT 216 TH/MM3 (150-450); RED BLOOD COUNT 4.95 MIL/MM3 (4.50-5.90); RED CELL DISTRIBUTION WIDTH 14.4 % (11.6-17.2); WHITE BLOOD COUNT 10.1 TH/MM3 (4.0-11.0)
[2016-12-04 08:00] VITALS: BP 165/84; PULSE 65; RESP 18; TEMP 98.7; O2SAT 95
[2016-12-04] MEDS: EZETIMIBE 10 MG TAB PO SCH (09:04)
[2016-12-04] MEDS: PANTOPRAZOLE SOD 20 MG DELAYED RELEASE TAB PO SCH (09:04)
[2016-12-04] MEDS: ASPIRIN EC 81 MG TABEC PO SCH (09:05)
[2016-12-04] MEDS: CARVEDILOL 12.5 MG TAB PO SCH ×2 (09:05→19:52)
[2016-12-04] MEDS: TAMSULOSIN HCL 0.4 MG CAP PO SCH (09:05)
[2016-12-04] MEDS: RAMIPRIL 5 MG CAP PO SCH (09:05)
[2016-12-04] MEDS: ACETAMINOPHEN 325 MG TAB PO PRN (09:18)
--- NOTE | 2016-12-04 11:43 | HHI.PR ---
Subjective Remarks in no acute distress. afebrile this morning. Tmax 101.7. has mild back pain. Objective Vitals Vital Signs Date Time Temp Pulse Resp B/P Pulse Ox O2 Delivery O2 Flow Rate FiO2 12/04/16 08:00 98.7 65 18 165/84 95 12/04/16 00:00 98.7 64 18 123/74 94 12/03/16 20:00 101.7 85 20 160/84 94 12/03/16 16:00 100.1 71 17 154/82 94 12/03/16 14:50 99.5 70 16 146/77 94 12/03/16 13:29 99.8 77 18 143/77 96 Room Air I/O 12/03/16 12/03/16 12/03/16 12/04/16 12/04/16 12/04/16 07:00 15:00 23:00 07:00 15:00 23:00 Intake Total 1150 ml 815 ml Output Total 1000 ml 400 ml Balance -1000 ml 1150 ml 415 ml Intake Oral 640 ml 220 ml IV Total 510 ml 595 ml Output Urine Total 1000 ml 400 ml # Voids 0 # Bowel Movements 0 Result Diagram: 12/04/16 0543 12/03/16 1110 Objective Remarks GENERAL: This is a well-nourished, well-developed patient, in no apparent distress. CARDIOVASCULAR: Regular rate and regular rhythm without murmurs, gallops, or rubs. RESPIRATORY: Clear to auscultation. Breath sounds equal bilaterally. No wheezes , rales, or rhonchi. GASTROINTESTINAL: Abdomen soft, non-tender, nondistended. Normal, active bowel sounds MUSCULOSKELETAL: Extremities without clubbing, cyanosis, or edema. NEURO: Alert & Oriented x4 to person, place, time, situation. Moves all ext x4 Procedures none Medications and IVs Current Medications Acetaminophen 650 mg 650 mg ONCE ONCE PO Last administered on 12/03/16 11:41 ; Start 12/03/16 at 11:30; Stop 12/03/16 at 11:31; Status DC Sodium Chloride 1,000 ml @ 999 mls/hr BOLUS ONCE IV Last administered on 12/03 11:56; Start 12/03/16 at 11:45; Stop 12/03/16 at 12:45; Status DC Ceftriaxone Sodium/Sodium Chloride (Rocephin Inj/NS Inj) 100 ml @ 200 mls/hr ONCE ONCE IV Last administered on 12/03/16 11:56; Start 12/03/16 at 11:45; Stop 12/03/16 at 12:14; Status DC Ondansetron HCl (Zofran Inj) 4 mg Q8HR PRN IV PUSH NAUSEA; Start 12/03/16 at 13 :00 Acetaminophen 650 mg 650 mg Q4H PRN PO FEVER/PAIN Last administered on 09:18; Start 12/03/16 at 13:00 Sodium Chloride (NS 1000 ml Inj) 1,000 ml @ 75 mls/hr [id number] ONCE IV Last administered on 12/03/16 13:21; Start 12/03/16 at 13:00; Stop 12/04/16 at 02:19 ; Status DC Carvedilol (Coreg) 25 mg BID PO Last administered on 12/04/16 09:05; Start at 21:00 EZETIMIBE (Zetia) 10 mg DAILY PO Last administered on 12/04/16 09:04; Start at 09:00 Trazodone HCl (Desyrel) 50 mg HS PRN PO INSOMNIA Last administered on 01:06; Start 12/03/16 at 13:00 Pantoprazole Sodium (Protonix) 20 mg DAILY PO Last administered on 12/04/16 09 :04; Start 12/04/16 at 09:00 Ramipril (Altace) 10 mg DAILY PO Last administered on 12/04/16 09:05; Start at 09:00 Tamsulosin HCl (Flomax) 0.4 mg DAILY PO Last administered on 12/04/16 09:05; Start 12/04/16 at 09:00 Aspirin 81 mg 81 mg DAILY PO Last administered on 12/04/16 09:05; Start at 09:00 Ceftriaxone Sodium/Sodium Chloride (Rocephin Inj/NS Inj) 100 ml @ 200 mls/hr Q24H IV ; Start 12/04/16 at 12:00 Enalaprilat (Vasotec Inj) 1.25 mg Q8H PRN IV PUSH SBP>180, DBP>110; Start at 13:15 Ibuprofen (Advil) 200 mg Q6H PRN PO FEVER Last administered on 12/03/16t 19:18 ; Start 12/03/16 at 18:45; Stop 12/04/16 at 08:03; Status DC A/P Assessment and Plan A/P - sepsis due to UTI along with urinary retention- s/p recent laminectomy garcia has been placed in ER- continue with IV antibiotic- antipyretics as needed- will follow the cultures. - s/p recent laminectomy- will consider neurosurgery consult ( ) if no improvement within the next one-two days . -CAD; resumed home meds. -DVT prophylaxis with SCD's. Manjit De Jesus MD December 04, 2016 11:43
[2016-12-04 12:00] VITALS: BP 141/78; PULSE 71; RESP 17; TEMP 98.7; O2SAT 95
[2016-12-04] MEDS: ACETAMINOPHEN/HYDROcodone 325 MG/5 MG TAB PO PRN ×2 (12:26→19:54)
[2016-12-04] MEDS: cefTRIAXone INJ 1,000 MG in SODIUM CHLORIDE 0.9% INJ 100 ML IV SCH (12:26)
[2016-12-04 16:00] VITALS: BP 153/79; PULSE 65; RESP 18; TEMP 99.6; O2SAT 97
[2016-12-04 18:31] VITALS: TEMP 99.9
[2016-12-04 20:00] VITALS: BP 166/91; PULSE 66; RESP 20; TEMP 99.4; O2SAT 94
[2016-12-05] VITALS: BP 152/79; PULSE 73; RESP 20; TEMP 99.6; O2SAT 95
[2016-12-05 06:00] VITALS: TEMP 100
[2016-12-05] MEDS: ACETAMINOPHEN/HYDROcodone 325 MG/5 MG TAB PO PRN ×3 (06:39→20:02)
[2016-12-05 08:00] VITALS: BP 151/85; PULSE 68; RESP 18; TEMP 98.9; O2SAT 91
[2016-12-05] MEDS: PANTOPRAZOLE SOD 20 MG DELAYED RELEASE TAB PO SCH (09:08)
[2016-12-05] MEDS: ASPIRIN EC 81 MG TABEC PO SCH (09:08)
[2016-12-05] MEDS: EZETIMIBE 10 MG TAB PO SCH (09:08)
[2016-12-05] MEDS: TAMSULOSIN HCL 0.4 MG CAP PO SCH (09:08)
[2016-12-05] MEDS: CARVEDILOL 12.5 MG TAB PO SCH ×2 (09:08→20:02)
[2016-12-05] MEDS: RAMIPRIL 5 MG CAP PO SCH (09:09)
[2016-12-05 12:00] VITALS: BP 147/83; PULSE 60; RESP 19; TEMP 97.7; O2SAT 94
[2016-12-05] MEDS: cefTRIAXone INJ 1,000 MG in SODIUM CHLORIDE 0.9% INJ 100 ML IV SCH (12:08)
--- NOTE | 2016-12-05 12:26 | HHI.PR ---
Subjective Remarks resting comfortably with no distress. overall the temps are better but had a low garde fever earlier. no other complaints. Objective Vitals Vital Signs Date Time Temp Pulse Resp B/P Pulse Ox O2 Delivery O2 Flow Rate FiO2 12/05/16 08:00 98.9 68 18 151/85 91 12/05/16 06:00 100.0 12/05/16 00:00 99.6 73 20 152/79 95 12/04/16 20:00 99.4 66 20 166/91 94 12/04/16 18:31 99.9 12/04/16 16:00 99.6 65 18 153/79 97 I/O 12/04/16 12/04/16 12/04/16 12/05/16 12/05/16 12/05/16 07:00 15:00 23:00 07:00 15:00 23:00 Intake Total 815 ml 780 ml 640 ml 240 ml Output Total 400 ml 2150 ml 800 ml 400 ml Balance 415 ml -1370 ml -160 ml -160 ml Intake Oral 220 ml 780 ml 640 ml 240 ml IV Total 595 ml Output Urine Total 400 ml 2150 ml 800 ml 400 ml # Bowel Movements 0 0 0 0 Result Diagram: 12/04/16 0543 12/03/16 1110 Objective Remarks GENERAL: This is a well-nourished, well-developed patient, in no apparent distress. CARDIOVASCULAR: Regular rate and regular rhythm without murmurs, gallops, or rubs. RESPIRATORY: Clear to auscultation. Breath sounds equal bilaterally. No wheezes , rales, or rhonchi. GASTROINTESTINAL: Abdomen soft, non-tender, nondistended. Normal, active bowel sounds MUSCULOSKELETAL: Extremities without clubbing, cyanosis, or edema. NEURO: Alert & Oriented x4 to person, place, time, situation. Moves all ext x4 Procedures none Medications and IVs Current Medications Acetaminophen 650 mg 650 mg ONCE ONCE PO Last administered on 12/03/16 11:41 ; Start 12/03/16 at 11:30; Stop 12/03/16 at 11:31; Status DC Sodium Chloride 1,000 ml @ 999 mls/hr BOLUS ONCE IV Last administered on 12/03 11:56; Start 12/03/16 at 11:45; Stop 12/03/16 at 12:45; Status DC Ceftriaxone Sodium/Sodium Chloride (Rocephin Inj/NS Inj) 100 ml @ 200 mls/hr ONCE ONCE IV Last administered on 12/03/16 11:56; Start 12/03/16 at 11:45; Stop 12/03/16 at 12:14; Status DC Ondansetron HCl (Zofran Inj) 4 mg Q8HR PRN IV PUSH NAUSEA; Start 12/03/16 at 13 :00 Acetaminophen 650 mg 650 mg Q4H PRN PO FEVER/PAIN <5 Last administered on 09:18; Start 12/03/16 at 13:00 Sodium Chloride (NS 1000 ml Inj) 1,000 ml @ 75 mls/hr [id number] ONCE IV Last administered on 12/03/16 13:21; Start 12/03/16 at 13:00; Stop 12/04/16 at 02:19 ; Status DC Carvedilol (Coreg) 25 mg BID PO Last administered on 12/05/16 09:08; Start at 21:00 EZETIMIBE (Zetia) 10 mg DAILY PO Last administered on 12/05/16 09:08; Start at 09:00 Trazodone HCl (Desyrel) 50 mg HS PRN PO INSOMNIA Last administered on 22:12; Start 12/03/16 at 13:00 Pantoprazole Sodium (Protonix) 20 mg DAILY PO Last administered on 12/05/16 09 :08; Start 12/04/16 at 09:00 Ramipril (Altace) 10 mg DAILY PO Last administered on 12/05/16 09:09; Start at 09:00 Tamsulosin HCl (Flomax) 0.4 mg DAILY PO Last administered on 12/05/16 09:08; Start 12/04/16 at 09:00 Aspirin 81 mg 81 mg DAILY PO Last administered on 12/05/16 09:08; Start at 09:00 Ceftriaxone Sodium/Sodium Chloride (Rocephin Inj/NS Inj) 100 ml @ 200 mls/hr Q24H IV Last administered on 12/05/16 12:08; Start 12/04/16 at 12:00 Enalaprilat (Vasotec Inj) 1.25 mg Q8H PRN IV PUSH SBP>180, DBP>110; Start at 13:15 Ibuprofen (Advil) 200 mg Q6H PRN PO FEVER Last administered on 12/03/16 19:18 ; Start 12/03/16 at 18:45; Stop 12/04/16 at 08:03; Status DC Acetaminophen/ Hydrocodone Bitart ([place] 5-325 Mg) 1 tab Q4H PRN PO PAIN >5 Last administered on 12/05/16 06:39; Start 12/04/16 at 11:45 A/P Assessment and Plan A/P - sepsis due to UTI along with urinary retention- s/p recent laminectomy garcia has been placed in ER- continue with IV antibiotic- antipyretics as needed- UC with e-coli. d/w 's office ( his urologist); recommended that the patient be discharged home with garcia cath- and f/u as outpatient. - s/p recent laminectomy- will consider neurosurgery consult ( ) if no improvement within the next 24 hrs. -CAD; resumed home meds. -DVT prophylaxis with SCD's. Discharge Planning dc home in am if remains afebrile. Manjit De Jesus MD December 05, 2016 12:26
[2016-12-05 16:00] VITALS: BP 156/74; PULSE 78; RESP 17; TEMP 98.7; O2SAT 95
[2016-12-05 20:00] VITALS: BP 155/88; PULSE 65; RESP 20; TEMP 97.7; O2SAT 95
[2016-12-05] MEDS: traZODone HCL 50 MG TAB PO PRN (22:32)
[2016-12-06] VITALS: BP 162/85; PULSE 66; RESP 20; TEMP 98.3; O2SAT 94
[2016-12-06 03:00] VITALS: BP 159/97; PULSE 65; RESP 20; TEMP 97.8; O2SAT 94
[2016-12-06 08:00] VITALS: BP 166/90; PULSE 64; RESP 19; TEMP 98.2; O2SAT 96
[2016-12-06] MEDS: RAMIPRIL 5 MG CAP PO SCH (08:21)
[2016-12-06] MEDS: EZETIMIBE 10 MG TAB PO SCH (08:21)
[2016-12-06] MEDS: PANTOPRAZOLE SOD 20 MG DELAYED RELEASE TAB PO SCH (08:21)
[2016-12-06] MEDS: CARVEDILOL 12.5 MG TAB PO SCH (08:21)
[2016-12-06] MEDS: ACETAMINOPHEN/HYDROcodone 325 MG/5 MG TAB PO PRN ×2 (08:22→14:59)
[2016-12-06] MEDS: ASPIRIN EC 81 MG TABEC PO SCH (08:22)
[2016-12-06] MEDS: TAMSULOSIN HCL 0.4 MG CAP PO SCH (08:22)
[2016-12-06] MEDS: cefTRIAXone INJ 1,000 MG in SODIUM CHLORIDE 0.9% INJ 100 ML IV SCH (11:57)
[2016-12-06 12:00] VITALS: BP 127/71; PULSE 69; RESP 17; TEMP 97.2; O2SAT 94
--- NOTE | 2016-12-06 12:19 | HHI.PR ---
Subjective Remarks resting comfortably with no distress. afebrile since yesterday. no new complaints. Objective Vitals Vital Signs Date Time Temp Pulse Resp B/P Pulse Ox O2 Delivery O2 Flow Rate FiO2 12/06/16 08:00 98.2 64 19 166/90 96 12/06/16 03:00 97.8 65 20 159/97 94 12/06/16 00:00 98.3 66 20 162/85 94 12/05/16 20:00 97.7 65 20 155/88 95 12/05/16 16:00 98.7 78 17 156/74 95 I/O 12/05/16 12/05/16 12/05/16 12/06/16 12/06/16 12/06/16 06:59 14:59 22:59 06:59 14:59 22:59 Intake Total 240 ml 750 ml 240 ml 120 ml Output Total 400 ml 1700 ml 650 ml 300 ml Balance -160 ml -950 ml -410 ml -180 ml Intake Oral 240 ml 750 ml 240 ml 120 ml Output Urine Total 400 ml 1700 ml 650 ml 300 ml # Bowel Movements 0 1 Result Diagram: 12/04/16 0543 12/03/16 1110 Objective Remarks GENERAL: This is a well-nourished, well-developed patient, in no apparent distress. CARDIOVASCULAR: Regular rate and regular rhythm without murmurs, gallops, or rubs. RESPIRATORY: Clear to auscultation. Breath sounds equal bilaterally. No wheezes , rales, or rhonchi. GASTROINTESTINAL: Abdomen soft, non-tender, nondistended. Normal, active bowel sounds MUSCULOSKELETAL: Extremities without clubbing, cyanosis, or edema. NEURO: Alert & Oriented x4 to person, place, time, situation. Moves all ext x4 Procedures none Medications and IVs Current Medications Acetaminophen 650 mg 650 mg ONCE ONCE PO Last administered on 12/03/16 11:41 ; Start 12/03/16 at 11:30; Stop 12/03/16 at 11:31; Status DC Sodium Chloride 1,000 ml @ 999 mls/hr BOLUS ONCE IV Last administered on 12/03 11:56; Start 12/03/16 at 11:45; Stop 12/03/16 at 12:45; Status DC Ceftriaxone Sodium/Sodium Chloride (Rocephin Inj/NS Inj) 100 ml @ 200 mls/hr ONCE ONCE IV Last administered on 12/03/16 11:56; Start 12/03/16 at 11:45; Stop 12/03/16 at 12:14; Status DC Ondansetron HCl (Zofran Inj) 4 mg Q8HR PRN IV PUSH NAUSEA; Start 12/03/16 at 13 :00 Acetaminophen 650 mg 650 mg Q4H PRN PO FEVER/PAIN <5 Last administered on 09:18; Start 12/03/16 at 13:00 Sodium Chloride (NS 1000 ml Inj) 1,000 ml @ 75 mls/hr [id number] ONCE IV Last administered on 12/03/16 13:21; Start 12/03/16 at 13:00; Stop 12/04/16 at 02:19 ; Status DC Carvedilol (Coreg) 25 mg BID PO Last administered on 12/06/16 08:21; Start at 21:00 EZETIMIBE (Zetia) 10 mg DAILY PO Last administered on 12/06/16 08:21; Start at 09:00 Trazodone HCl (Desyrel) 50 mg HS PRN PO INSOMNIA Last administered on 22:32; Start 12/03/16 at 13:00 Pantoprazole Sodium (Protonix) 20 mg DAILY PO Last administered on 12/06/16 08 :21; Start 12/04/16 at 09:00 Ramipril (Altace) 10 mg DAILY PO Last administered on 12/06/16 08:21; Start at 09:00 Tamsulosin HCl (Flomax) 0.4 mg DAILY PO Last administered on 12/06/16 08:22; Start 12/04/16 at 09:00 Aspirin 81 mg 81 mg DAILY PO Last administered on 12/06/16 08:22; Start at 09:00 Ceftriaxone Sodium/Sodium Chloride (Rocephin Inj/NS Inj) 100 ml @ 200 mls/hr Q24H IV Last administered on 12/06/16 11:57; Start 12/04/16 at 12:00 Enalaprilat (Vasotec Inj) 1.25 mg Q8H PRN IV PUSH SBP>180, DBP>110; Start at 13:15 Ibuprofen (Advil) 200 mg Q6H PRN PO FEVER Last administered on 12/03/16 19:18 ; Start 12/03/16 at 18:45; Stop 12/04/16 at 08:03; Status DC Acetaminophen/ Hydrocodone Bitart ([place] 5-325 Mg) 1 tab Q4H PRN PO PAIN >5 Last administered on 12/06/16 08:22; Start 12/04/16 at 11:45 A/P Assessment and Plan A/P - sepsis due to UTI along with urinary retention- s/p recent laminectomy garcia has been placed in ER- treated with IV antibiotic- will switch to po upon discharge. antipyretics as needed- UC with e-coli. previously d/w 's office ( his urologist); recommended that the patient be discharged home with garcia cath- and f/u as outpatient. - s/p recent laminectomy- f/u with as needed. -CAD; resumed home meds. -DVT prophylaxis with SCD's. Discharge Planning dc home today. see med list. f/u; pcp, urology and neurosurgery. d/w the patient. Manjit De Jesus MD December 06, 2016 12:19
[2016-12-06] MEDS ORDERED: CEFT250T8 PO (12:20)
--- NOTE | 2016-12-06 12:21 | HHI.DCPOC ---
Discharge Care Plan Diagnosis: (1) UTI (urinary tract infection) (2) Urinary retention Your Health Problems Are: Urinary Difficulties Goals to Promote Your Health * To prevent worsening of your condition and complications * To maintain your health at the optimal level Directions to Meet Your Goals Take your medications as prescribed Follow your dietary instruction Follow activity as directed Keep your appointments as scheduled Take your immunizations and boosters as scheduled If your symptoms worsen call your PCP, if no PCP go to Urgent Care Center or Emergency Room Smoking is Dangerous to Your Health. Avoid second hand smoke Call the 24-hour hour crisis hotline for domestic abuse at Manjit De Jesus MD December 06, 2016 12:21
--- NOTE | 2016-12-06 12:22 | HHI.DS ---
Discharge Summary Admission Date December 03, 2016 at 12:37 Discharge Date: December 06, 2016 Admitting Diagnosis Urosepsis (1) Sepsis ICD Code: A41.9 Diagnosis: Principal (2) UTI (urinary tract infection) ICD Code: N39.0 Diagnosis: Principal (3) Urinary retention ICD Code: R33.9 Diagnosis: Principal Procedures none Brief History - From Admission patient is a 66 y/o male with history of lumbar spine stenosis- s/p L4-L5/ L5- S1 laminectomy four days ago presented to ER with urinary retention and fever. he says that ' everything went well after the surgery' . he had a garcia cath at the time which was removed before he was discharged home. he says that he could void before discharge. but when he went home he started to have urinary retention along with high fever. he says that he had urinary retention after the surgery in the past but not ' that bad'. he says that he took some tylenol which initially ' took care of the fever ' but again since two days ago he's had on and off fever. he says that he had some pressure over his bladder along with some dribbling. he denies any lower extremity weakness, numbness or stool incontinence. a garcia cath was inserted in ER after which he felt much better. CBC/BMP: 12/04/16 0543 12/03/16 1110 Significant Findings Laboratory Tests Test 12/04/16 05:43 Monocytes (%) (Auto) 18.5 % (0.0-8.0) Monocytes # (Auto) 1.9 TH/MM3 (0-0.9) PE at Discharge GENERAL: This is a well-nourished, well-developed patient, in no apparent distress. CARDIOVASCULAR: Regular rate and regular rhythm without murmurs, gallops, or rubs. RESPIRATORY: Clear to auscultation. Breath sounds equal bilaterally. No wheezes , rales, or rhonchi. GASTROINTESTINAL: Abdomen soft, non-tender, nondistended. Normal, active bowel sounds MUSCULOSKELETAL: Extremities without clubbing, cyanosis, or edema. NEURO: Alert & Oriented x4 to person, place, time, situation. Moves all ext x4 Hospital Course - sepsis due to UTI along with urinary retention- s/p recent laminectomy garcia has been placed in ER- treated with IV antibiotic- will switch to po upon discharge. antipyretics as needed- UC with e-coli. previously d/w 's office ( his urologist); recommended that the patient be discharged home with garcia cath- and f/u as outpatient. - s/p recent laminectomy- f/u with as needed. -CAD; resumed home meds. -DVT prophylaxis with SCD's. Pt Condition on Discharge: Good Discharge Disposition: Discharge Home Discharge Time: <= 30 minutes Discharge Instructions DIET: Follow Instructions for: Heart Healthy Diet Activities you can perform: Regular-No Restrictions Follow up Referrals: Neurosurgery PCP Follow-up Urology New Medications: Cefuroxime (Ceftin) 250 Mg Tab 250 MG PO BID Infection Days 5 Ref 0 TAB Continued Medications: Aspirin DR (Aspirin 81) 81 Mg Tabdr 81 MG PO DAILY Ref 0 TAB Carvedilol (Carvedilol) 25 Mg Tab 25 MG PO BID #60 Ref 0 TAB Ezetimibe (Zetia) 10 Mg Tab 10 MG PO DAILY #30 Ref 0 TAB Omeprazole (Omeprazole) 20 Mg Tab 20 MG PO DAILY #30 Ref 0 TAB Ramipril (Ramipril) 10 Mg Cap 10 MG PO DAILY #30 Ref 0 CAP Silodosin (Rapaflo) 8 Mg Cap 8 MG PO DAILY Manage Prostate Problems #30 Ref 0 CAP Tadalafil (Cialis) 5 Mg Tab 5 MG PO DAILY Do not exceed 1 dose/day. Ref 0 TAB Trazodone (Trazodone) 50 Mg Tab 50 MG PO HS PRN INSOMNIA #30 Ref 0 TAB Manjit De Jesus MD December 06, 2016 12:22
== END 2016-12-06 15:05 | disposition home or self-care (01) | DRG 872 ==
LOC: NEPC 10:34 → NEDA 12:37 → N07B 14:48
PROVIDERS: ADMIT Internal Medicine; ATTEND Internal Medicine
PROC: 0T9B70Z Drainage of Bladder with Drainage Device, Via Natural or Artificial Opening (ICD-10-PCS; principal; 2016-12-03)
DX: A41.51 Sepsis due to Escherichia coli [E. coli] (principal); N39.0 Urinary tract infection, site not specified; I10 Essential (primary) hypertension; A41.9 Sepsis, unspecified organism; I25.10 Atherosclerotic heart disease of native coronary artery without angina pectoris; M48.06 Spinal stenosis, lumbar region; D35.00 Benign neoplasm of unspecified adrenal gland; G47.30 Sleep apnea, unspecified; F32.9 Major depressive disorder, single episode, unspecified; Z85.46 Personal history of malignant neoplasm of prostate; Z87.891 Personal history of nicotine dependence; Z88.5 Allergy status to narcotic agent; Z88.1 Allergy status to other antibiotic agents; Z90.5 Acquired absence of kidney; Z90.81 Acquired absence of spleen; Z98.1 Arthrodesis status
CPT/HCPCS: 51703; 72020; 76000; 80048; 81001; 83605; 85025; 85610; 85730; 87040; 87077; 87086; 87186; 94150; 96365; J0690; J0696; J7030

== ENCOUNTER 2018-02-05 06:41 | Inpatient (IN) ==
[2018-02-05] MEDS ORDERED: Bupivacaine/Epinephrine 0.5% Inj 50 ML Vial ONE (07:01)
[2018-02-05] MEDS ORDERED: Thrombin Topical Soln 5,000 UNIT Vial TOPICAL ONE (07:02)
[2018-02-05] MEDS ORDERED: ceFAZolin 2 GM Premix Inj 0 GM/0 ML PIGGYBACK IV.SIG ONE (07:02)
[2018-02-05] MEDS ORDERED: Gelatin Size 100 Topical Foam ONE (07:02)
[2018-02-05] MEDS ORDERED: HYDROmorphone PF Inj 2 MG/ML Vial ONE (07:18)
[2018-02-05] MEDS ORDERED: Propofol Inj 500 MG/50 ML Vial ONE (07:18)
[2018-02-05] MEDS ORDERED: Sodium Chlor 0.9% Inj 500 ML IV.SIG SCH (08:00)
[2018-02-05] MEDS ORDERED: Metoprolol Tartrate 25 MG Tablet PO SCH (08:00)
[2018-02-05] MEDS ORDERED: Chlorhexidine Gluconate 2% 1 Pack (2 Cloths) TOPICAL SCH (08:00)
[2018-02-05] MEDS ORDERED: ceFAZolin 2 GM IV; once IV.SIG SCH (08:00)
[2018-02-05] MEDS ORDERED: Famotidine PF Inj 20 MG/2 ML Vial ONE (08:21)
[2018-02-05] MEDS ORDERED: Bisacodyl 10 MG Supp RECTAL PRN ×2 (09:54→09:55)
[2018-02-05] MEDS ORDERED: Naloxone Inj 0.4 MG/ML Vial IV.PUSH PRN (10:01)
[2018-02-05] MEDS ORDERED: HYDROmorphone PF Inj 2 MG/ML Vial IV.PUSH ONE (11:30)
[2018-02-05] MEDS ORDERED: fentaNYL Citrate Inj 100 MCG/2 ML Ampul ONE (12:32)
--- NOTE | 2018-02-05 15:19 | P.OP ---
- Preoperative Diagnosis (1) Lumbar degenerative disc disease - Postoperative Diagnosis (1) Lumbar degenerative disc disease Date of procedure: 02/05/18 Procedure: L4-L5, L5-S1 laminectomy, interbody arthrodhesis using PEEK cage and autologous bone graft, L4-L5 instrumental fixation using transpedicular screws and rods, L4 -L5 posterolateral fusion using autologous bone graft and demineralized bone matrix. Microsurgical dissection Anesthesia: GETA Surgeon: Tucker Hoover MD Tile Decorator: Keiko Fairchild Pathology: none sent Operation and Findings: INDICATIONS FOR THE SURGICAL PROCEDURE Mr Bravo is a 67 year-old male who presented with intractable mechanical back pain and eulalio evidence of lower extremity radiculopathy. The patient has failed maximum nonsurgical management including multiple modalities of conservative treatment as well as pain management interventions by an interventional pain specialist. A surgical decompression and arthrodhesis were indicated as a last resort. The [id number] details of the procedure, indications, alternatives, risks and potential complications were fully discussed with the patient. The patient fully understood. All the questions were answered. No guarantees were given. The patient voiced requesting the procedure and provided informed consents. The patient was offered the alternative of delaying the procedure and continuing with nonsurgical management. DETAILS OF THE SURGICAL PROCEDURE Prior to the procedure, the surgical incision was marked in the preoperative surgical holding room, and the procedure, risks, and potential complications revisited with the patient. Placement of electrodes for intraoperative neurophysiological monitoring was completed. The patient was taken to the operative room, and following induction of general anesthesia, endotracheal intubation was performed. A Orozco catheter, bilateral BOBBY hose and sequential compression devices were placed and kept throughout the procedure. The patient was positioned prone, over a Jerad table over a Jayce frame. All pressure in the preoperative surgical holding room points were carefully padded with eggcrate and gel mattress. The eyes were tapped shut after ointment was applied by the nesthesiologist to prevent corneal abrasion. A Ras hugger was placed over the exposed lower body to maintain control of the core body temperature. The electrophysiological team placed the needles and electrodes in their proper location and baseline SSEP's and motor evoked potentials were registered prior and following the positioning. The entrance to each pedicles was marked using a C arm. The lumbar region was prepped and draped in the usual sterile fashion. The surgical procedure was performed in several steps as follow: SURGICAL APPROACH Once the patient was positioned, a localizing cross-table lateral x-ray was performed with a C-arm. Two paramedian small incisions were outlined on the skin approximately 3cm from the midline. The skin incisions were made with a # 10 blade. Small bleeders were controlled with the cautery. The dissection was then carried out into deper planes and through the thoracolumbar fascia with a Bovie. The intermuscular septum was identified and the myscles were blunted dissected along the septum. The facets and transverse process of L4, L5 and S1 were exposed and the proper anatomical landmarks were identidied. A microsurgical self-retaining retractor was placed on the incision, and a localizing lateralizing cross-table x-ray was performed with an instrument underneath a lamina of the lumbar spine. There was a bilateral pars defect with gross instability of the bony structures. INSTRUMENTAL FIXATION At this point in the procedure, placement of bilateral transpedicular screws was necessary for stabilization of the spine.. Initially, the entry point for the screw was selected anatomically at the junction of the facet, with the transverse process, and the pars interarticularis at L4, L5, and S1. This was started with a Giamshetti needle followed by the use of a guzman wire. A tap was used to create the threads for the screws. Finally bilateral transpedicular screws were carefully placed bilaterally at L4, and L5 under fluoroscopic visualization. 6.5mm x 45mm scxrews were placed at L4 and L5 while 6.5 by 40mm were placed at S1. An appropriate purchase was achieved with all screws. The position of each screw was assessed anatomically with an AP, lateral , oblique Xrays. An intraoperative scan view of the spine was then performed using the iso-centric c-arm. Each screw was then assessed electrophysiologically stimulating each screw with a nerve stimulator. . SURGICAL DECOMPRESSION There was significant mass effect with compression of the neural structures. In order to relieve neural compression, it was necessary to perform a decompressive laminectomy, with decompression of the spinal canal and bilateral lateral recesses. Note that the scope of such decompression was significantly more extensive than the minimal exposure necessary to perform an interbody fusion, as there was extreme facet arthropathy with near complete collapse of the disk spaces and severe stenosis cause by the hyperthrophic joint facets. At this point of the procedure the operative microscope was draped in the usual sterile fashion and brought to the field. The rest of the surgical procedure was performed using microdissection technique with the exception of the closure. Under the operating microscope, the margins of the prior laminectomy were carefully dissected free of scar tissue. The edges of the dura were carefully exposed at L4-5 and at L5-S1. then a decompressive laminectomy was carried out at at L4-5 and at L5-S1 as follow: The laminae, base of the spinous processes and facets were carefully drilled exposing the ligamentum flavum. The facets were abnormal with severe facet arthropathy, vacuum facets, and mass effect over the neural structures. A broad disk protusion was contributing to compression of the neural structures and exiting L5, and S1 nerve roots. There was extensive scar tissue which was contributing to the neural compression, which was carefully dissected under the microscope using microdissection technique, with extreme care to avoid a CSF leak. A near complete facetectomy was necessary. The ligamentum flavum appeared hypertrophic, resulting on mass effect on the dorsal surface of the neural structures. The superior free border of the ligamentum flavum was elevated with a ligament dissector and the ligamentum flavum was removed with a 3 and 4 mm Kerrison forceps. The ligament was very adherent to the dural sac and during the dissection, ans extreme care was taken during the dissection. The exiting nerve roots were identified, and a wide foraminotomy was performed at L5 and S1 nerve roots with a Kerrison in their trajectory towards the neural foramenat both levels. Epidural veins located laterally to the dural sac were coagulated with the bipolar cautery, and then incised using microscissors. Gentle medial retraction of the dural sac allowed me to expose the disc space for the discectomy. Upon completion of the discectomy, an excellent decompression of the neural structures was achieved. INTERBODY ARTHRODHESIS In order to correct the narrowing of the disk space and maintain distraction of the space, and to achieve a solid interbody fusion, it was necessary the insertion of an interbody device into the disk space. Otherwise, the disk space would collapse, compromising the result of the surgical procedure. At this point of the procedure, the annulus fibrosus of the disk was carefully coagulated with a bipolar cautery and incised using an 11 bladed knife. Then, a microdiscectomy was carried out in a standard fashion using a combination of straight and up-biting pituitary forceps. A reverse angle curette was applied underneath the posterior longitudinal ligament, and used to push the disk fragments into the disk space, so they can be safely removed with a pituitary forceps. Once the discectomy was completed, it was necessary to decorticate the endplates, in order to eliminate the cartilaginous endplate and to expose healthy bone appropriate to perform the interbody fusion. The endplates at L4-5 , and L5-S1 were then thoroughly decorticated using increasing size bone dada and ring curets, eliminating the cartilaginous fragments from both, the superior and inferior endplates. A disk space distractor was applied to the pedicle screws and gentle distraction was applied. This maneuver was assisted by the use of a disk distractor. Once a thorough preparation of the disk space was achieved, the disk space was irrigated with antibiotic solution, and the interbody fusion was performed by carefully impacting PPEK cages filled with autologous bone graft. A 6mm cage was placed at L5-S1 while a 8mm cage was placed at L4-5. The use of several shoe impactors with different angulation, allowed me for an excellent, proper position of the interbody cage. A solid position of the cage with good purchase was achieved. The position of the cages were assessed anatomically with a probe and radiologically with the C-arm. POSTEROLATERAL FUSION The posterolateral fusion is a critical component to the procedure, to prevent future fatigue and failure of the instrumental fixation. Initially, the transverse processes of the vertebral bodies, lateral surface of the facets and the lateral gutters of the spine were carefully cleaned, eliminating all soft tissue and muscle attachments. The area was then irrigated with a large amount of antibiotic solution. Subsequently, the transverse processes, lateral surface of the facets, and lateral gutters of the spine were thoroughly decorticated using the TPS drill with a 5mm cutting valerie, exposing cancellous bone, in preparation for the posterolateral fusion. The incision was again irrigated with antibiotic solution. Then, the posterolateral fusion was then performed by carefully packing the lateral gutters of the spine at L4-5, and L5-S1 with autologous bone combined with demineralized bone matrix. I packed as much bone as possible. COMPLETION OF THE INSTRUMENTATION AND CLOSURE The rods were brought to the field, applied to all the screws, and the screw caps were sequentially applied. Compression was performed between the pedicle screws, and final tightening of the screws was completed using a torque wrench. A cross-link was used to connect the rods, in order to increase the stability of the construct. The cross link was secured using a torque wrench previously calibrated. The incision was again thoroughly irrigated with several liters of antibiotic solution, and hemostasis secured with the bipolar cautery. A Valsalva Maneuver performed by the anesthesiologist failed to show any evidence of cerebrospinal fluid leak or bleeding. A 10 mm Jerad-Berg drain was left in the epidural space and externalized through a separate stab incision. The incision was then closed in planes. 0 Vicryl was used in an interrupted fashion to close the thoracolumbar fascia and the superficial fascia. The subcutaneous tissue was then approximated using 3-0 Vicryl in an interrupted fashion. Special care was taken to avoid space. The skin was then closed with 4-0 Vicryl in a running, subcuticular fashion. Dermabond was applied to the skin. Each plane of closure was irrigated with antibiotic solution. At the end of the procedure the sponge, needle and instrument counts were all correct. Estimated blood loss was 150-200 cc or less. No blood transfusion was given. The entire procedure was performed using continuous electrophysiological monitoring of the somato sensorial evoked potentials and EMG. The patient received prophylactic antibiotics. The patient was then extubated and transferred to the recovery room in stable condition.
[2018-02-05] MEDS: HYDROmorphone PCA Inj 6 MG/30 ML PCA.VIAL PCA PRN (15:35)
[2018-02-05] MEDS ORDERED: Lidocaine PF 1% Inj 5 ML Syringe INFILTRATN ONE (16:56)
[2018-02-05] MEDS ORDERED: Glycopyrrolate Inj 1 MG/5 ML Syringe IV.PUSH ONE (16:56)
[2018-02-05] MEDS ORDERED: Phenylephrine/NS 1000 MCG/10ML Syringe IV.PUSH ONE (16:56)
[2018-02-05] MEDS ORDERED: Labetalol HCl Inj 100 MG/20 ML Vial IV.CONT ONE (16:56)
[2018-02-05] MEDS ORDERED: Sodium Chlor 0.9% Inj 500 ML IV.SIG ONE (16:56)
[2018-02-05] MEDS ORDERED: ceFAZolin 2 GM Premix Inj 2 GM/50 ML PIGGYBACK IV.SIG SCH (17:00)
--- NOTE | 2018-02-05 17:14 | P.CONIM ---
History of Present Illness Primary Care Provider: Dr Frank Meadows MD [facility] History of Present Illness: Mr. Bravo is a 67-year-old male admitted secondary to a PLIF. She has a history of benign prostatic hypertrophy, hypertension, and hyperlipidemia. He says this is his third back surgery. Pain is controlled when seen. No other complaints at this time. Vital signs are showing control blood pressures and no fever. Review of Systems Constitutional: Denies body ache(s), Denies fever(s), Denies weakness Eyes: Denies blind spots, Denies blurry vision, Denies change in vision, Denies double vision Ears, Nose, Mouth, and Throat: Denies abnormal hearing, Denies bleeding gums, Denies change in voice Cardiovascular: Denies chest pain, Denies chest pain at rest, Denies chest pain with activity Respiratory: Denies cough, Denies shortness of breath, Denies wheezing Gastrointestinal: Denies abdominal pain, Denies black, tarry stools, Denies bloating, Denies bright, red blood in stools Musculoskeletal: Reports back pain, Denies abnormal walking, Denies body aches Skin/Breast: Denies rash, Denies skin pain, Denies skin ulcer Neurologic: Denies abnormal hearing, Denies abnormal movements, Denies abnormal speech PMFSH - History History Provided By: Patient - Medical History Medical History: Medical History (Last Updated 01/29/18 @ 12:30 by Irma Mccloud RN) Abnormal colonoscopy Back pain Vanegas esophagus GERD (gastroesophageal reflux disease) History of prostate cancer Hx of myocardial infarction Hx of reduction of closed fracture Hyperlipemia Hypertension Sleep apnea with use of continuous positive airway pressure (CPAP) - Surgical History Surgical History: Surgical History (Last Updated 01/29/18 @ 12:30 by Irma Mccloud RN) History of back surgery History of nephrectomy Hx of appendectomy Hx of carpal tunnel repair Hx of cholecystectomy Hx of fusion of cervical spine Hx of splenectomy Hx of total adrenalectomy - Tobacco History Second Hand Smoke Exposure: Yes Tobacco Use In Past 30 Days: No Smoking Status: Former smoker - Alcohol History How Often Do You Have a Drink Containing Alcohol: 2 to 3 times a week - Substance Use History Substance History: No History of Abuse - Travel History Recent Travel in the [place] Within the Last 8 Weeks: No Recent Travel Out of the Country Within the Last 8 Weeks: No Medications and Allergies Active Medications: Active Medications Acetaminophen (Tylenol) 650 mg PO Q4H PRN PRN Reason: TEMPERATURE > 101.5 F Al Hydroxide/Mg Hydroxide (Milk Of Magnesia Liq) 30 ml PO Q12H PRN PRN Reason: Mild Constipation Albuterol (Albuterol Neb (Prn)) 2.5 mg NEB Q4HR NEB PRN PRN Reason: WHEEZING Bisacodyl (Dulcolax Supp) 10 mg RECTAL DAILY PRN PRN Reason: SEVERE CONSITIPATION Carvedilol (Coreg) 25 mg PO BID [facility] Chlorhexidine Gluconate (Chlorhexidine 2% Cloth) 3 pack TOPICAL [employer]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 [facility] Stop: 02/08/18 07:54 Last Admin: 02/05/18 07:30 Dose: 3 pack Cefazolin Sodium/Dextrose (Ancef 2 Gm Premix Inj) 2 gm in 50 mls @ 100 mls/hr IV.SIG 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 ENGINEER [facility] Stop: 02/05/18 23:00 Lactated Ringer's (Lr 1000 Ml Inj) 1,000 mls @ 30 mls/hr IV.SIG .Q24H [facility] Stop: 02/08/18 07:54 Last Admin: 02/05/18 07:15 Dose: 30 mls/hr Sodium Chloride (Ns Inj) 500 mls @ 30 mls/hr IV.SIG .Q10H [facility] Stop: 02/08/18 07:54 Potassium Chloride/Sodium Chloride (Ns + Kcl 20 Meq Inj) 1,000 mls @ 100 mls/ hr IV.CONT .Q10H [facility] Last Admin: 02/05/18 15:35 Dose: 100 mls/hr Hydromorphone/Sodium Chloride (Dilaudid Food Service Substitute Inj) 6 mg in 30 mls @ 0 mls/hr CORE LAYING MACHINE OPERATOR UNSCH PRN PRN Reason: per CORE LAYING MACHINE OPERATOR parameters Last Admin: 02/05/18 15:35 Dose: 0 mls/hr Cefazolin Sodium/Dextrose (Ancef 2 Gm Premix Inj) 2 gm in 50 mls @ 100 mls/hr IV.SIG Q8H [facility] Stop: 02/06/18 13:29 Cefazolin Sodium/Dextrose (Ancef 2 Gm Premix Inj) 2 gm in 50 mls @ 100 mls/hr IV.SIG Q8H [facility] Stop: 02/06/18 13:29 Lactulose (Lactulose Liq) 30 ml PO DAILY PRN PRN Reason: SEVERE CONSITIPATION Melatonin (Melatonin) 5 mg PO [facility] Metoprolol Tartrate (Lopressor) 25 mg PO 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 ENGINE[employer] [facility] Stop: 02/08/18 07:54 Miscellaneous Information (Mis Nursing Information) 1 each OTHER UNSCH PRN PRN Reason: SEE LABEL COMMENTS Stop: 02/06/18 14:34 Morphine Sulfate (Morphine Inj) 4 mg IV.PUSH Q4H PRN PRN Reason: Pain Scale 7 to 10 Naloxone HCl (Narcan Inj) 0.4 mg IV.PUSH UNSCH PRN PRN Reason: SEE LABEL COMMENTS Pantoprazole Sodium (Protonix) 20 mg PO DAILY [facility] Povidone Iodine (Betadine 5% Antisepsis Kit) 1 applicatio EACH NARE 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 ENGINEER [facility] Stop: 02/08/18 07:54 Last Admin: 02/05/18 08:00 Dose: 1 applicatio Ramipril (Altace) 10 mg PO DAILY [facility] Senna/Docusate Sodium (Katie-Colace) 1 tab PO BID [facility] Sennosides (Senokot) 17.2 mg PO Q12H PRN PRN Reason: Moderate Constipation Tamsulosin HCl (Flomax) 0.4 mg PO DAILY [facility] Allergies Allergy/AdvReac Type Severity Reaction Status Date / Time simvastatin Allergy Severe Abdominal Unverified 02/05/18 07:10 Pain amlodipine AdvReac Severe RABDOMYOLYSIS, Unverified 02/05/18 07:10 RENAL FAILURE atorvastatin AdvReac Severe RABDOMYOLYSIS, Unverified 02/05/18 07:10 RENAL FAILURE pravastatin AdvReac Severe RABDOMYOLYSIS, Unverified 02/05/18 07:10 RENAL FAILURE acetaminophen AdvReac Intermediate ITCHING Unverified 02/05/18 07:10 hydrocodone AdvReac Intermediate ITCHING Unverified 02/05/18 07:10 levofloxacin AdvReac Intermediate NAUSEA/VOMI Unverified 02/05/18 07:10 TING Home Medications Medication Instructions Recorded Confirmed Type Aspir-Low 81 mg PO DAILY 01/29/18 01/29/18 History carvedilol 25 mg PO BID 01/29/18 02/05/18 History evolocumab [Repatha SureClick] 140 mg SUB-Q Q2W 01/29/18 02/05/18 History glucosamine-chondroitin [Osteo 2 tab PO DAILY 01/29/18 02/05/18 History Bi-Flex] melatonin 24 mg SUBLINGUAL DAILY 01/29/18 02/05/18 History omeprazole 20 mg PO DAILY 01/29/18 02/05/18 History ramipril 10 mg PO DAILY 01/29/18 02/05/18 History silodosin 8 mg PO DAILY 01/29/18 02/05/18 History tadalafil [Cialis] 5 mg PO DAILY 01/29/18 02/05/18 History Exam Vital signs: Vital Signs 02/05/18 07:44 02/05/18 14:34 02/05/18 14:45 Temperature 98.8 F 97.6 F Pulse Rate 62 74 73 Respiratory Rate 16 14 10 L Blood Pressure 153/92 H 117/70 91/50 L Pulse Oximetry 98 96 96 02/05/18 15:00 02/05/18 15:15 02/05/18 15:30 Temperature Pulse Rate 77 78 74 Respiratory Rate 14 15 16 Blood Pressure 140/86 147/88 H 154/96 H Pulse Oximetry 93 L 93 L 93 L 02/05/18 16:00 02/05/18 16:45 Temperature Pulse Rate 65 62 Respiratory Rate 15 15 Blood Pressure 167/100 H 161/95 H Pulse Oximetry 94 L Intake & Output 02/04/18 02/05/18 02/05/18 18:59 06:59 18:59 Intake Total 2450 / 2450 Output Total 2049 / 2049 Balance 400 / 400 Weight 80.5 kg Intake: IV 50 / 50 Ancef 2 GM Premix Inj 0 gm In 0 50 / 50 ml @ 0 mls/hr IV.SIG .STK-MED ONE Rx#:[id number] Anesthesia Amount 2400 / 2400 Output: Estimated Blood Loss 150 / 150 Urine Amount (Catheter) 1900 / 1900 Coude 1899 / 0 Other: Weight On Admission 80.5 kg Narrative: GENERAL: NAD, A&Ox3 HEAD: Normocephalic. NECK: Supple, trachea midline. No lymphadenopathy. EYES: No scleral icterus. No injection or drainage. CARDIOVASCULAR: Regular rate and rhythm without murmurs, gallops, or rubs. RESPIRATORY: Breath sounds equal bilaterally. No accessory muscle use. GASTROINTESTINAL: Abdomen soft, non-tender, nondistended. MUSCULOSKELETAL: No cyanosis, or edema. Decreased range of motion of back, postop. SKIN: Warm and dry. NEURO: No focal neurological deficits. Results - Labs Labs: Laboratory Results - last 24 hr 02/05/18 07:25 Blood Type O Positive Blood Type Recheck Required Antibody Screen Negative Assessment and Plan - Assessment (1) BPH (benign prostatic hyperplasia) Code(s): N40.0 - Benign prostatic hyperplasia without lower urinary tract symptoms Status: Acute (2) Hypertension Code(s): I10 - Essential (primary) hypertension Status: Acute (3) Hyperlipidemia Code(s): E78.5 - Hyperlipidemia, unspecified Status: Acute (4) Lumbar degenerative disc disease Code(s): M51.36 - Other intervertebral disc degeneration, lumbar region Status : Acute - Plan 67-year-old male admitted for PLIF. Status post PLIF Neurosurgery following Continue pain treatments Activity per neurosurgery recommendations BPH Baseline prostate medications resumed Follow clinically Hypertension Continue baseline treatment Follow blood pressures Adjust treatments as needed Hyperlipidemia Continue present treatment Follow as an outpatient DVT prophylaxis SCDs
[2018-02-05] MEDS: Acetaminophen 325 MG Tablet PO PRN (20:33)
[2018-02-05] MEDS: Carvedilol 12.5 MG Tablet PO SCH (20:33)
[2018-02-05] MEDS: ceFAZolin 2 GM Premix Inj 2 GM/50 ML PIGGYBACK IV.SIG SCH ×2 (20:33→20:34)
[2018-02-05] MEDS: Senna/Docusate Sodium 8.6/50 MG Tablet PO SCH (20:34)
[2018-02-05] MEDS ORDERED: Senna/Docusate Sodium 8.6/50 MG Tablet PO SCH (21:00)
[2018-02-05] MEDS: Morphine Inj 4 MG/ML Vial IV.PUSH PRN (22:44)
[2018-02-06] MEDS: ceFAZolin 2 GM Premix Inj 2 GM/50 ML PIGGYBACK IV.SIG SCH ×4 (04:16→17:20)
[2018-02-06] MEDS: Morphine Inj 4 MG/ML Vial IV.PUSH PRN ×2 (04:16→17:22)
[2018-02-06 07:13] LABS: Baso % (Auto) 0.2 % (0.0-2.0); Hematocrit 45.1 % (39.0-51.0); Hemoglobin 15.4 gm/dL (13.0-17.0); Lymph # (Auto) 1.4 th/mm3 (1.0-4.8); Lymph % (Auto) 7.1 % (9.0-44.0); Mean Corpuscular HGB Conc 34.1 % (32.0-36.0); Mean Corpuscular Hemoglobin 32.1 pg (27.0-34.0); Mean Corpuscular Volume 94.2 fL (80.0-100.0); Mean Platelet Volume 9.5 fL (7.0-11.0); Mono # (Auto) 1.9 th/mm3 (0.0-0.9); Mono % (Auto) 9.5 % (0.0-8.0); Neut % (Auto) 83.2 % (16.0-70.0); Platelet Count 269 th/mm3 (150-450); Red Blood Count 4.79 mil/mm3 (4.50-5.90); Red Cell Distribution Width 14.4 % (11.6-17.2); White Blood Count 20.5 th/mm3 (4.0-11.0)
--- NOTE | 2018-02-06 07:32 | XR ---
EXAM DATE: 02/06/2018 7:28 AM EDT AGE/SEX: 67 years / Male INDICATIONS: Post-op L4-L5 and L5-S1 posterior lumbar fusion. CLINICAL DATA: This is the patient's subsequent encounter. Patient reports that signs and symptoms h ave been present for 1 day and indicates a pain score of Nonresponsive. MEDICAL/SURGICAL HISTORY: Non-responsive. Non-responsive. COMPARISON: No prior exams available for comparison. FINDINGS: Transpedicular screws traverse the bodies ofL4, L5, and S1 with posterior stabilization hardware in p lace in addition to anterior fusion at these levels and fusion at these levels . CONCLUSION: Intact immediate postsurgical changes. Electronically signed by: Maikol Davis MD 02/06/2018 7:31 AM EDT
[2018-02-06 07:34] LABS: Calcium 8.3 mg/dL (8.5-10.1); Potassium 4.9 meq/L (3.5-5.1)
[2018-02-06] MEDS ORDERED: GLUCOSAMINE CHONDROITIN PO SCH (09:00)
[2018-02-06] MEDS ORDERED: Evolocumab [Repatha Sureclick] 140 MG SQ SCH (09:00)
[2018-02-06] MEDS ORDERED: Tadalafil [Cialis] 5 MG PO SCH (09:00)
[2018-02-06] MEDS: Carvedilol 12.5 MG Tablet PO SCH ×2 (09:03→21:02)
[2018-02-06] MEDS: Ramipril 5 MG Capsule PO SCH (09:03)
[2018-02-06] MEDS: Senna/Docusate Sodium 8.6/50 MG Tablet PO SCH ×2 (09:04→21:02)
[2018-02-06] MEDS: Pantoprazole Sodium 20 MG DR Tablet PO SCH (09:04)
--- NOTE | 2018-02-06 10:16 | P.PNIM ---
Subjective Interval history: Patient is doing well postop. Pain is controlled. No signs of blood loss on CBC today. Physical Exam Vital signs: Vital Signs 02/05/18 14:34 02/05/18 14:45 02/05/18 15:00 Temperature 97.6 F Pulse Rate 74 73 77 Respiratory Rate 14 10 L 14 Blood Pressure 117/70 91/50 L 140/86 Pulse Oximetry 96 96 93 L 02/05/18 15:15 02/05/18 15:30 02/05/18 16:00 Temperature 97.2 F L Pulse Rate 78 74 65 Respiratory Rate 15 16 12 Blood Pressure 147/88 H 154/96 H 170/95 H Pulse Oximetry 93 L 93 L 96 02/05/18 16:45 02/05/18 20:32 02/05/18 20:52 Temperature 97.4 F L Pulse Rate 62 61 Respiratory Rate 15 18 18 Blood Pressure 161/95 H 144/71 H Pulse Oximetry 97 02/05/18 22:45 02/06/18 00:16 02/06/18 00:41 Temperature 98.2 F Pulse Rate 70 Respiratory Rate 18 18 18 Blood Pressure 152/76 H Pulse Oximetry 95 02/06/18 04:00 Temperature 97.6 F Pulse Rate 72 Respiratory Rate 18 Blood Pressure 128/55 L Pulse Oximetry 95 Intake & Output 02/05/18 02/06/18 02/06/18 18:59 06:59 18:59 Intake Total 2450 / 2450 1580 / 1580 Output Total 2059 / 2059 900 / 900 Balance 390 / 390 680 / 680 Weight 80.5 kg 80.5 kg Intake: IV 50 / 50 1100 / 1100 NS + KCl 20 mEq Inj 1,000 ML @ 1000 / 1000 100 mls/hr IV.CONT .Q10H [facility] Rx #:[id number] Ancef 2 GM Premix Inj 2 gm In 50 / 50 100 / 100 50 ml @ 100 mls/hr IV.SIG Q8H [facility] Rx#:[id number] Oral 480 / 480 Anesthesia Amount 2400 / 2400 Output: Urine 850 / 850 Estimated Blood Loss 150 / 150 Urine Amount (Catheter) 1899 / 1900 Coude 1899 / 1899 Wound Drainage 50 / 50 # 1 Lower Back Matt 50 50 Other: Date of Last Bowel Movement 02/05/18 02/05/18 Weight On Admission 80.5 kg Narrative: GENERAL: NAD, A&Ox3 HEAD: Normocephalic. NECK: Supple, trachea midline. No lymphadenopathy. EYES: No scleral icterus. No injection or drainage. CARDIOVASCULAR: Regular rate and rhythm without murmurs, gallops, or rubs. RESPIRATORY: Breath sounds equal bilaterally. No accessory muscle use. GASTROINTESTINAL: Abdomen soft, non-tender, nondistended. MUSCULOSKELETAL: No cyanosis, or edema. SKIN: Warm and dry. NEURO: No focal neurological deficits. - Urinary Catheter Management Coude Cath placed during this visit: yes Reason for continuing: Hourly intake/output Insertion date: 02/05/18 Insertion time: 09:00 Results - Labs CBC & Chem 7: 02/06/18 06:25 02/06/18 06:25 Laboratory Results - last 24 hr 02/06/18 02/06/18 06:25 06:25 WBC 20.5 H RBC 4.79 Hgb 15.4 Hct 45.1 MCV 94.2 MCH 32.1 MCHC 34.1 RDW 14.4 Plt Count 269 MPV 9.5 Neut % (Auto) 83.2 H Lymph % (Auto) 7.1 L Mcmullen % (Auto) 9.5 H Eos % (Auto) 0.0 Baso % (Auto) 0.2 Neut # (Auto) 17.0 H Lymph # (Auto) 1.4 Mcmullen # (Auto) 1.9 H Eos # (Auto) 0.0 Baso # (Auto) 0.0 WBC Differential . Differential Comment Auto diff final Sodium 141 Potassium 4.9 Chloride 109 H Carbon Dioxide 25.0 Anion Gap 7 BUN 12 Creatinine 1.21 Estimated GFR 60 L Random Glucose 138 H Calcium 8.3 L - Imaging Impressions Lumbar Spine X-Ray 02/05/18 00:00 CONCLUSION: Intact immediate postsurgical changes. Assessment and Plan - Assessment (1) BPH (benign prostatic hyperplasia) Code(s): N40.0 - Benign prostatic hyperplasia without lower urinary tract symptoms Status: Acute (2) Hypertension Code(s): I10 - Essential (primary) hypertension Status: Acute (3) Hyperlipidemia Code(s): E78.5 - Hyperlipidemia, unspecified Status: Acute (4) Lumbar degenerative disc disease Code(s): M51.36 - Other intervertebral disc degeneration, lumbar region Status : Acute - Plan 67-year-old male admitted for PLIF. Status post PLIF Neurosurgery following Continue pain treatments Activity per neurosurgery recommendations BPH History of urinary retention postop Baseline prostate medications resumed Follow clinically Leave catheter in for now Void trial tomorrow Patient may need to discharge with catheter for trial failed Hypertension Continue baseline treatment Follow blood pressures Adjust treatments as needed As needed clonidine Hyperlipidemia Continue present treatment Follow as an outpatient FLP in a.m. DVT prophylaxis SCDs Discharge planning No acute concerns, from medical standpoint patient will be cleared for discharge when cleared by surgery
--- NOTE | 2018-02-06 16:17 | P.PNNS ---
Subjective Interval history: 02/06: POD 1 s/p L4-L5, L5-S1 laminectomy, interbody arthrodesis using PEEK cage and autologous bone graft, L4-L5 instrumental fixation using transpedicular screws and rods, L4-L5 posterolateral fusion using autologous bone graft and demineralized bone matrix. Microsurgical dissection doing well, pain controlled, doesn't want strong narcotics due to history of urinary retention Physical Exam Vital signs: Vital Signs 02/05/18 16:45 02/05/18 20:32 02/05/18 20:52 Temperature 97.4 F L Pulse Rate 62 61 Respiratory Rate 15 18 18 Blood Pressure 161/95 H 144/71 H Pulse Oximetry 97 02/05/18 22:45 02/06/18 00:16 02/06/18 00:41 Temperature 98.2 F Pulse Rate 70 Respiratory Rate 18 18 Blood Pressure 152/76 H Pulse Oximetry 95 02/06/18 04:00 02/06/18 08:00 02/06/18 12:00 Temperature 97.6 F 98.6 F 98.4 F Pulse Rate 72 61 71 Respiratory Rate 18 18 18 Blood Pressure 128/55 L 163/57 H 119/62 Pulse Oximetry 95 95 95 Intake & Output 02/05/18 02/06/18 02/06/18 18:59 06:59 18:59 Intake Total 2450 / 2450 2630 / 2630 Output Total 2059 / 2059 900 / 900 Balance 390 / 390 1730 / 1730 Weight 80.5 kg 80.5 kg Intake: IV 50 / 50 0 / 2150 NS + KCl 20 mEq Inj 1,000 ML @ 1999 / 1999 100 mls/hr IV.CONT .Q10H [facility] Rx #:[id number] Ancef 2 GM Premix Inj 2 gm In 50 / 50 150 / 150 50 ml @ 100 mls/hr IV.SIG Q8H [facility] Rx#:[id number] Oral 480 / 480 Anesthesia Amount 2400 / 2400 Output: Urine 850 / 850 Estimated Blood Loss 150 / 150 Urine Amount (Catheter) 1900 / 1900 Coude 1899 / 1899 Wound Drainage 50 / 50 # 1 Lower Back Matt 50 Other: Date of Last Bowel Movement 02/05/18 02/05/18 Weight On Admission 80.5 kg Narrative: Awake, alert NAD speech fluent moving lower extremities - Urinary Catheter Management Coude Cath placed during this visit: yes Reason for continuing: Hourly intake/output Insertion date: 02/05/18 Insertion time: 09:00 Assessment and Plan - Plan Impression s/p L4-L5, L5-S1 laminectomy, interbody arthrodhesis using PEEK cage and autologous bone graft, L4-L5 instrumental fixation using transpedicular screws and rods, L4 -L5 posterolateral fusion using autologous bone graft and demineralized bone matrix. Microsurgical dissection Plan: cont postoperative pain mgt awaiting custom TLSO brace start mobilizing with TLSO appreciate medical assistance
[2018-02-06] MEDS: Acetaminophen 325 MG Tablet PO PRN (21:00)
[2018-02-06] MEDS: Melatonin 5 MG Tablet PO SCH (21:02)
[2018-02-06] MEDS: HYDROmorphone PCA Inj 6 MG/30 ML PCA.VIAL PCA PRN (21:02)
[2018-02-07 05:53] LABS: Chol/HDL Ratio 2.13 Ratio
[2018-02-07] MEDS: Pantoprazole Sodium 20 MG DR Tablet PO SCH (09:32)
[2018-02-07] MEDS: Senna/Docusate Sodium 8.6/50 MG Tablet PO SCH ×2 (09:32→20:24)
[2018-02-07] MEDS: Carvedilol 12.5 MG Tablet PO SCH ×2 (09:32→20:23)
[2018-02-07] MEDS: Ramipril 5 MG Capsule PO SCH (09:33)
--- NOTE | 2018-02-07 10:04 | P.PNIM ---
Subjective Interval history: Patient will attempt to get out of bed today now that brace is available. We talked about void trial and he prefers to defer till tomorrow or at least until he can get out of bed. No new complaints today. Cholesterol levels are reviewed and are all within normal limits. Physical Exam Vital signs: Vital Signs 02/06/18 12:00 02/06/18 16:00 02/06/18 20:00 Temperature 98.4 F 99.1 F 98.9 F Pulse Rate 71 66 72 Respiratory Rate 18 18 18 Blood Pressure 119/62 162/74 H 144/68 H Pulse Oximetry 95 95 95 02/06/18 21:32 02/07/18 00:00 02/07/18 01:00 Temperature 98.9 F Pulse Rate 72 Respiratory Rate 16 18 16 Blood Pressure 130/62 Pulse Oximetry 94 L 02/07/18 04:00 Temperature 98.7 F Pulse Rate 65 Respiratory Rate 14 Blood Pressure 130/60 Pulse Oximetry 97 Intake & Output 02/06/18 02/07/18 02/07/18 18:59 06:59 18:59 Intake Total 1800 / 1800 Output Total 2520 / 2520 2410 / 2410 Balance -2520 / -2520 -610 / -610 Intake: IV 1000 / 1000 NS + KCl 20 mEq Inj 1,000 ML @ 1000 / 1000 100 mls/hr IV.CONT .Q10H [facility] Rx #:[id number] Oral 800 / 800 Output: Urine 2500 / 2500 2400 / 2400 Wound Drainage 10 # 1 Lower Back Matt Other: Date of Last Bowel Movement 02/05/18 02/05/18 Narrative: GENERAL: NAD, A&Ox3 HEAD: Normocephalic. NECK: Supple, trachea midline. No lymphadenopathy. EYES: No scleral icterus. No injection or drainage. CARDIOVASCULAR: Regular rate and rhythm without murmurs, gallops, or rubs. RESPIRATORY: Breath sounds equal bilaterally. No accessory muscle use. GASTROINTESTINAL: Abdomen soft, non-tender, nondistended. MUSCULOSKELETAL: No cyanosis, or edema. Decreased truncal range of motion due to lower back pain. SKIN: Warm and dry. NEURO: No focal neurological deficits. - Urinary Catheter Management Coude Cath placed during this visit: yes Reason for continuing: Hourly intake/output Insertion date: 02/05/18 Insertion time: 09:00 Results - Labs CBC & Chem 7: 02/06/18 06:25 02/06/18 06:25 Laboratory Results - last 24 hr 02/07/18 05:00 Triglycerides 119 Cholesterol 94 L LDL Cholesterol, Calc 26 HDL Cholesterol 44.0 Cholesterol/HDL Ratio 2.13 Assessment and Plan - Assessment (1) BPH (benign prostatic hyperplasia) Code(s): N40.0 - Benign prostatic hyperplasia without lower urinary tract symptoms Status: Acute (2) Hypertension Code(s): I10 - Essential (primary) hypertension Status: Acute (3) Hyperlipidemia Code(s): E78.5 - Hyperlipidemia, unspecified Status: Acute (4) Lumbar degenerative disc disease Code(s): M51.36 - Other intervertebral disc degeneration, lumbar region Status : Acute - Plan 67-year-old male admitted for PLIF. Void trial given history of urinary obstruction postop. Void trial planned for tomorrow unless patient becomes more ambulatory this afternoon. 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 P.o. pain treatments initiated. Status post PLIF Neurosurgery following Continue pain treatments Activity per neurosurgery recommendations BPH History of urinary retention postop Baseline prostate medications resumed Follow clinically Leave catheter in for now Void trial tomorrow Patient may need to discharge with catheter for trial failed Hypertension Continue baseline treatment Follow blood pressures Adjust treatments as needed As needed clonidine Hyperlipidemia Continue present treatment Follow as an outpatient FLP in a.m. DVT prophylaxis SCDs Discharge planning No acute concerns, from medical standpoint patient will be cleared for discharge when cleared by surgery
--- NOTE | 2018-02-07 12:41 | P.PNNS ---
Subjective Interval history: 02/07: doing well, custom brace delivered last evening. Physical Exam Vital signs: Vital Signs 02/06/18 16:00 02/06/18 20:00 02/06/18 21:32 Temperature 99.1 F 98.9 F Pulse Rate 66 72 Respiratory Rate 18 18 16 Blood Pressure 162/74 H 144/68 H Pulse Oximetry 95 95 02/07/18 00:00 02/07/18 01:00 02/07/18 04:00 Temperature 98.9 F 98.7 F Pulse Rate 72 65 Respiratory Rate 18 16 14 Blood Pressure 130/62 130/60 Pulse Oximetry 94 L 97 Intake & Output 02/06/18 02/07/18 02/07/18 18:59 06:59 18:59 Intake Total 1800 / 1800 Output Total 2520 / 2520 2410 / 2410 Balance -2520 / -2520 -610 / -610 Intake: IV 1000 / 1000 NS + KCl 20 mEq Inj 1,000 ML @ 1000 / 1000 100 mls/hr IV.CONT .Q10H [facility] Rx #:[id number] Oral 800 / 800 Output: Urine 2500 / 2500 2400 / 2400 Wound Drainage # 1 Lower Back Matt Other: Date of Last Bowel Movement 02/05/18 02/05/18 - Urinary Catheter Management Coude Cath placed during this visit: yes Reason for continuing: Hourly intake/output Insertion date: 02/05/18 Insertion time: 09:00 Assessment and Plan - Plan Impression s/p L4-L5, L5-S1 laminectomy, interbody arthrodhesis using PEEK cage and autologous bone graft, L4-L5 instrumental fixation using transpedicular screws and rods, L4 -L5 posterolateral fusion using autologous bone graft and demineralized bone matrix. Microsurgical dissection Plan: dc BARN HAND, start on oral pain medications prn garcia management once ambulatory OOB today with custom TLSO brace, awaiting PT appreciate medical assistance anticipate dc home tomorrow Dr. Kiko Page
--- NOTE | 2018-02-07 14:28 | P.DCO ---
- Physical Therapy Order: Improve ambulation - Home Health Nursing Order: Medical education, Signs/symptoms of disease process, Medication education-adverse effect, Wound care and dressing changes (please see dc wound care), Nursing assessment with vital signs - Certification I have seen patient Osei Bravo on 02/07/18. My clinical findings support the need for the requested home health care services because: Deconditioned with increased weakness, High risk of falls I certify that my clinical findings support that this patient is homebound because: Post-op weakness, Unsteady gait/balance, Unsafe to leave home unassisted
[2018-02-07] MEDS: Melatonin 5 MG Tablet PO SCH (20:31)
[2018-02-07 22:56] VITALS: RESP 18; O2SAT 95
[2018-02-08 01:37] VITALS: BP 118/59; PULSE 76; TEMP 98.8
[2018-02-08] MEDS: Pantoprazole Sodium 20 MG DR Tablet PO SCH (09:07)
[2018-02-08] MEDS: Ramipril 5 MG Capsule PO SCH (09:07)
[2018-02-08] MEDS: Carvedilol 12.5 MG Tablet PO SCH (09:07)
[2018-02-08] MEDS: Senna/Docusate Sodium 8.6/50 MG Tablet PO SCH (09:07)
--- NOTE | 2018-02-08 10:37 | P.DS ---
Date of admission: 02/05/18 06:41 Primary care physician: Dr Frank Tomas Brief History from admission: Mr Bravo is a 67 year-old male who presented with intractable mechanical back pain and eulalio evidence of lower extremity radiculopathy. The patient has failed maximum nonsurgical management including multiple modalities of conservative treatment as well as pain management interventions by an interventional pain specialist. A surgical decompression and arthrodesis were indicated as a last resort. DS: Diagnosis - Discharge Diagnosis (1) S/P lumbar fusion Status: Acute DS: Medications - Discharge Medications Prescriptions: hydrocodone-acetaminophen 1 tab PO Q4H PRN 3 Days #15 tab PRN Reason: Pain 7 to 10 DS: Summary Hospital Course: Mr. Braov underwent L4-L5, L5-S1 laminectomy, interbody arthrodhesis using PEEK cage and autologous bone graft, L4-L5 instrumental fixation using transpedicular screws and rods, L4-L5 posterolateral fusion using autologous bone graft and demineralized bone matrix. Microsurgical dissection on 02/05/18. He will be discharged home in stable conditions. - Time Spent with Patient Total time spent providing and/or coordinating discharge services: - Quality: VTE Deep Vein Thrombosis/Pulmonary Embolism Present on Admission: No Exam Vital signs: Vital Signs 02/07/18 12:00 02/07/18 16:00 02/07/18 20:00 Temperature 98.7 F 98 F 99.3 F Pulse Rate 71 69 Respiratory Rate 16 16 18 Blood Pressure 100/54 L 154/81 H 130/79 Pulse Oximetry 98 16 L 95 02/08/18 00:00 Temperature 98.8 F Pulse Rate 76 Respiratory Rate 18 Blood Pressure 118/59 L Pulse Oximetry 95 Intake & Output 02/07/18 02/08/18 02/08/18 18:59 06:59 18:59 Intake Total 640 / 640 Output Total 2400 / 2400 Balance -1760 / -1760 Weight 82.7 kg Intake: Oral 640 / 640 Output: Urine 2400 / 2400 Other: Date of Last Bowel Movement 02/04/18 02/07/18 Results Procedures completed during hospitalization: L4-L5, L5-S1 laminectomy, interbody arthrodhesis using PEEK cage and autologous bone graft, L4-L5 instrumental fixation using transpedicular screws and rods, L4 -L5 posterolateral fusion using autologous bone graft and demineralized bone matrix. Microsurgical dissection - Impressions ITS Impressions Lumbar Spine X-Ray 02/05/18 00:00 CONCLUSION: Intact immediate postsurgical changes. Discharge Plan - Discharge Disposition Patient Disposition: W/Home Health Service - Discharge Condition Condition: Stable - Discharge Order Discharge Orders: Discharge Order (Routine); Ordered 02/08/18 Ordered By: Chayo Luis Hospitalist Clear for Discharge (Routine); Ordered 02/06/18 Ordered By: Tony Page - Physicians Team Attending Provider: Tucker Hoover Other Providers: Tony Page MD - Rxs /Orders / Referrals /Forms Prescriptions: New hydrocodone-acetaminophen 10-325 mg Tablet 1 tab PO Q4H PRN (Reason: Pain 7 to 10) 3 Days Qty: 15 RF: 0 Continue Aspir-Low capsule 81 mg PO DAILY carvedilol 25 mg Tablet 25 mg PO BID evolocumab [Repatha SureClick] 140 mg/mL Pen Injector 140 mg SUB-Q Q2W glucosamine-chondroitin [Osteo Bi-Flex] 250-200 mg Tablet 2 tab PO DAILY melatonin 10 mg Tablet, Sublingual 24 mg SUBLINGUAL DAILY omeprazole 20 mg Capsule,Delayed Release(Dr/Ec) 20 mg PO DAILY ramipril 10 mg Capsule 10 mg PO DAILY silodosin 8 mg Capsule 8 mg PO DAILY tadalafil [Cialis] 5 mg Tablet 5 mg PO DAILY Ambulatory Orders / Order Sets / DME: Adjustable Commode 3-in-1 (1 each) (Routine) Location: Determined by Patient Ordered By: Chayo Luis Walker With Front Wheels (1 each) (Routine) Location: Determined by Patient Ordered By: Chayo Luis Referrals: Dr Frank Tomas MD [Other] - See Instructions - Discharge Instructions Patient Printed Instructions: Laminectomy (DC)
--- NOTE | 2018-02-08 10:38 | P.PNIM ---
Subjective Interval history: No distress. Plan for void trial today. Possible discharge this afternoon. Physical Exam Vital signs: Vital Signs 02/07/18 12:00 02/07/18 16:00 02/07/18 20:00 Temperature 98.7 F 98 F 99.3 F Pulse Rate 71 69 Respiratory Rate 16 16 18 Blood Pressure 100/54 L 154/81 H 130/79 Pulse Oximetry 98 16 L 95 02/08/18 00:00 Temperature 98.8 F Pulse Rate 76 Respiratory Rate 18 Blood Pressure 118/59 L Pulse Oximetry 95 Intake & Output 02/07/18 02/08/18 02/08/18 18:59 06:59 18:59 Intake Total 640 / 640 Output Total 2400 / 2400 Balance -1760 / -1760 Weight 82.7 kg Intake: Oral 640 / 640 Output: Urine 2400 / 2400 Other: Date of Last Bowel Movement 02/04/18 02/07/18 Narrative: GENERAL: NAD, A&Ox3 HEAD: Normocephalic. NECK: Supple, trachea midline. No lymphadenopathy. EYES: No scleral icterus. No injection or drainage. CARDIOVASCULAR: Regular rate and rhythm without murmurs, gallops, or rubs. RESPIRATORY: Breath sounds equal bilaterally. No accessory muscle use. GASTROINTESTINAL: Abdomen soft, non-tender, nondistended. MUSCULOSKELETAL: No cyanosis, or edema. Decreased truncal range of motion due to lower back pain. SKIN: Warm and dry. NEURO: No focal neurological deficits. - Urinary Catheter Management Coude Cath placed during this visit: yes Reason for continuing: Hourly intake/output Insertion date: 02/05/18 Insertion time: 09:00 Results - Labs CBC & Chem 7: 02/06/18 06:25 02/06/18 06:25 Assessment and Plan - Assessment (1) BPH (benign prostatic hyperplasia) Code(s): N40.0 - Benign prostatic hyperplasia without lower urinary tract symptoms Status: Acute (2) Hypertension Code(s): I10 - Essential (primary) hypertension Status: Acute (3) Hyperlipidemia Code(s): E78.5 - Hyperlipidemia, unspecified Status: Acute (4) Lumbar degenerative disc disease Code(s): M51.36 - Other intervertebral disc degeneration, lumbar region Status : Acute - Plan 67-year-old male admitted for PLIF. Pain control. Void trial today. Potential discharge this afternoon. Patient medically stable for discharge. If patient fails voiding trial he will be discharging with a Orozco catheter. Status post PLIF Neurosurgery following Continue pain treatments Activity per neurosurgery recommendations BPH History of urinary retention postop Baseline prostate medications resumed Follow clinically Leave catheter in for now Void trial tomorrow Patient may need to discharge with catheter for trial failed Hypertension Continue baseline treatment Follow blood pressures Adjust treatments as needed As needed clonidine Hyperlipidemia Continue present treatment Follow as an outpatient FLP in a.m. DVT prophylaxis SCDs Discharge planning No acute concerns, from medical standpoint patient will be cleared for discharge when cleared by surgery
== END 2018-02-08 16:57 | disposition home health service (06) ==
LOC: HSDI 06:41 → N06 17:02
PROVIDERS: ADMIT Neurological Surgery; ATTEND Neurological Surgery